=== PATIENT | female | born 1960 | race Caucasian/White ===

== ENCOUNTER 2016-12-03 15:34 | Emergency (ER) | payer OTHER ==
[2016-12-03 15:39] VITALS: BMI 26.5
--- NOTE | 2016-12-03 15:54 | PDOC ---
History of Present Illness <Jerrell Gautam - Last Filed: 12/03/16 15:53> - General History Source: Patient Exam Limitations: No Limitations - History of Present Illness Initial Comments: 12/03/16 16:24 56 y/o F with a PMHx of GERD, HTN, HLD, thyroid disease presents to the ED with chest pressure since yesterday. Patient reports the pain as intermittent and rates it as a 5/10. The pain does not radiate and it is not reproducible. She reports it is exacerbated after eating. Patient gets reflux often, and she usually takes Nexium. Yesterday the pain was slightly different, and describes it as more of a tightness. She took an Kelsea-Plover and she burped and the pain has resovled since then. She denies fever, chills, diaphoresis. She denies SOB, palpitations. She denies NVD. <Ilsa Boogie A - Last Filed: 12/03/16 16:41> - General Chief Complaint: Chest Pain Stated Complaint: CHEST PAIN Time Seen by Provider: 12/03/16 15:53 Past History - Past Medical History Anemia: No Asthma: No Cancer: No Cardiac Disorders: No CVA: No COPD: No CHF: No Dementia: No Diabetes: No GI Disorders: Yes (GERD) Disorders: No HTN: Yes Hypercholesterolemia: Yes Liver Disease: No Seizures: Yes (had one seizure post op removal of brain tumor) Thyroid Disease: Yes Lung CA: No - Surgical History Abdominal Surgery: No Appendectomy: No Cardiac Surgery: No Cholecystectomy: No Lung Surgery: No Neurologic Surgery: Yes (Removal of brain tumor x2 05/2014) Orthopedic Surgery: No - Suicide/Smoking/Psychosocial Hx Smoking Status: No Smoking History: Never smoked Number of Cigarettes Smoked Daily: 0 Cigars Per Day: 0 Information on smoking cessation initiated: No Hx Alcohol Use: No Drug/Substance Use Hx: No Substance Use Type: None Hx Substance Use Treatment: No <Jerrell Gautam - Last Filed: 12/03/16 15:53> <Ilsa Boogie - Last Filed: 12/03/16 16:41> - Past Medical History Allergies/Adverse Reactions: Allergies Allergy/AdvReac Type Severity Reaction Status Date / Time No Known Drug Allergies Allergy Verified 12/03/16 15:36 Home Medications: Ambulatory Orders Levothyroxine [Synthroid -] 25 mcg PO DAILY 10/15/11 Atorvastatin Calcium [Lipitor] 10 mg PO DAILY 08/26/12 Aspirin [Emgha Chewable Aspirin] 81 mg PO DAILY 02/25/14 Losartan Potassium 100 mg PO DAILY 02/25/14 Metoprolol Tartrate [Lopressor -] 50 mg PO HS 02/25/14 Loratadine [Claritin -] 10 mg PO DAILY #7 tablet 01/18/15 Lacosamide [Vimpat -] 200 mg PO BID 05/16/15 Meclizine HCl [Antivert -] 12.5 mg PO BID 05/16/15 Pantoprazole Sodium [Protonix -] 20 mg PO DAILY 05/16/15 Cyclobenzaprine HCl [Flexeril -] 10 mg PO TID PRN #12 tablet 06/28/15 Lacosamide [Vimpat -] 200 mg PO BID 06/28/15 Review of Systems - Review of Systems Able to Perform ROS?: Yes Comments:: 12/03/16 16:24 GENERAL/CONSTITUTIONAL: No fever or chills. No weakness. HEAD, EYES, EARS, NOSE AND THROAT: No change in vision. No ear pain or discharge. No sore throat. CARDIOVASCULAR: (+) chest pressure. No shortness of breath. RESPIRATORY: No cough, wheezing, or hemoptysis. GASTROINTESTINAL: No nausea, vomiting, diarrhea or constipation. GENITOURINARY: No dysuria, frequency, or change in urination. MUSCULOSKELETAL: No joint or muscle swelling or pain. No neck or back pain. SKIN: No rash NEUROLOGIC: No headache, vertigo, loss of consciousness, or change in strength/ sensation. ENDOCRINE: No increased thirst. No abnormal weight change. HEMATOLOGIC/LYMPHATIC: No anemia, easy bleeding, or history of blood clots. ALLERGIC/IMMUNOLOGIC: No hives or skin allergy. <Ilsa Boogie - Last Filed: 12/03/16 16:41> *Physical Exam - Vital Signs Last Vital Signs Temp Pulse Resp BP Pulse Ox 99.4 F 94 H 18 143/84 100 12/03/16 15:36 12/03/16 15:36 12/03/16 15:36 12/03/16 15:36 12/03/16 15:36 <Jerrell Gautam - Last Filed: 12/03/16 15:53> - Vital Signs Last Vital Signs Temp Pulse Resp BP Pulse Ox 99.4 F 94 H 18 143/84 100 12/03/16 15:36 12/03/16 15:36 12/03/16 15:36 12/03/16 15:36 12/03/16 15:36 - Physical Exam Comments: 12/03/16 16:25 GENERAL: Awake, alert, and fully oriented, in no acute distress HEAD: No signs of trauma EYES: PERRLA, EOMI, sclera anicteric, conjunctiva clear ENT: Auricles normal inspection, hearing grossly normal, nares patent, oropharynx clear without exudates. Moist mucosa NECK: Normal ROM, supple, no lymphadenopathy, JVD, or masses LUNGS: Breath sounds equal, clear to auscultation bilaterally. No wheezes, and no crackles HEART: Regular rate and rhythm, normal S1 and S2, no murmurs, rubs or gallops ABDOMEN: Soft, nontender, normoactive bowel sounds. No guarding, no rebound. No masses EXTREMITIES: Normal range of motion, no edema. No clubbing or cyanosis. No cords, erythema, or tenderness NEUROLOGICAL: Cranial nerves II through XII grossly intact. Normal speech, normal gait SKIN: Warm, Dry, normal turgor, no rashes or lesions noted. <Ilsa Boogie - Last Filed: 12/03/16 16:41> *DC/Admit/Observation/Transfer - Attestations Physician Attestion: 12/03/16 15:53 I, Dr. Jerrell Gautam, attest that this document has been prepared under my direction and personally reviewed by me in its entirety. I further attest, that it accurately reflects all work, treatment, procedures and medical decision -making performed by me. <Jerrell Gautam - Last Filed: 12/03/16 15:53> - Attestations Scribe Attestion: 12/03/16 16:25 Documentation prepared by Ilsa Boogie, acting as medical research assistant for Jerrell Gautam DO. <Ilsa Boogie - Last Filed: 12/03/16 16:41>
[2016-12-03 17:01] LABS: BASOPHIL 0.9 % (0-2.0); EOSINOPHIL 6.6 % (0-4.5); MCH 29.1 pg (25.7-33.7); MCHC 34.4 g/dl (32.0-36.0); MEAN CELL VOLUME 84.7 fl (80-96); MEAN PLT VOLUME 7.8 fl (7.5-11.1); NEUTROPHILS 53.7 % (42.8-82.8); PLATELET COUNT 252 K/MM3 (134-434); WHITE BLOOD COUNT 8.2 K/mm3 (4.0-10.0)
[2016-12-03 17:36] LABS: INR 1.39 (0.82-1.09); PROTHROMBIN TIME (PATIENT) 15.4 SEC (9.98-11.88)
[2016-12-03 19:01] LABS: ALBUMIN 3.9 g/dl (3.4-5.0); ANION GAP 10 (8-16); BILIRUBIN,TOTAL 0.3 mg/dL (0.2-1.0); CALCIUM 9.1 mg/dL (8.5-10.1); CO2 28 mmol/L (21-32); CREATININE 0.7 mg/dL (0.55-1.02); GLUCOSE,RANDOM 91 mg/dL (74-106); SGOT/AST 14 U/L (15-37); SGPT/ALT 21 U/L (12-78); TOT PROT 7.3 g/dl (6.4-8.2)
[2016-12-03 19:03] LABS: ALK PHOS 104 U/L (45-117); CPK 202 IU/L (26-192); TROPONIN I < 0.02 ng/ml (0.00-0.05)
[2016-12-03 19:07] LABS: THYROID STIMULATING HORMONE 2.12 uIU/ml (0.358-3.74)
--- NOTE | 2016-12-03 23:11 | PDOC ---
*Physical Exam - Vital Signs Last Vital Signs Temp Pulse Resp BP Pulse Ox 99.4 F 94 H 18 143/84 100 12/03/16 15:36 12/03/16 15:36 12/03/16 15:36 12/03/16 15:36 12/03/16 15:36 <KrisKarla - Last Filed: 12/03/16 23:09> - Vital Signs Last Vital Signs Temp Pulse Resp BP Pulse Ox 98.7 F 86 16 157/83 99 12/03/16 21:18 12/03/16 21:18 12/03/16 21:18 12/03/16 21:18 12/03/16 21:18 <Federica Gandhi - Last Filed: 12/03/16 23:49> ED Treatment Course - LABORATORY CBC & Chemistry Diagram: 12/03/16 16:50 12/03/16 18:14 - ADDITIONAL ORDERS Additional order review: Laboratory Results 12/03/16 12/03/16 12/03/16 18:14 18:14 18:14 PT with INR INR D-Dimer Sodium 142 Potassium 3.7 Chloride 104 Carbon Dioxide 28 Anion Gap 10 BUN 15 D Creatinine 0.7 Creat Clearance w eGFR > 60 Random Glucose 91 Calcium 9.1 Magnesium Total Bilirubin 0.3 D AST 14 L D ALT 21 D Alkaline Phosphatase 104 Creatine Kinase 202 H Creatine Kinase Index 0.4 CK-MB (CK-2) < 1.000 Troponin I < 0.02 B-Natriuretic Peptide 50.41 Total Protein 7.3 Albumin 3.9 Lipase 175 TSH 2.12 12/03/16 12/03/16 12/03/16 18:00 16:50 16:50 PT with INR INR D-Dimer 1036 H Sodium Potassium Chloride Carbon Dioxide Anion Gap BUN Creatinine Creat Clearance w eGFR Random Glucose Calcium Magnesium Total Bilirubin AST ALT Alkaline Phosphatase Creatine Kinase Creatine Kinase Index CK-MB (CK-2) Troponin I B-Natriuretic Peptide Cancelled Total Protein Albumin Lipase Cancelled TSH Cancelled 12/03/16 12/03/16 12/03/16 16:50 16:50 16:50 PT with INR 15.40 H INR 1.39 H D-Dimer Cancelled Sodium Cancelled Potassium Cancelled Chloride Cancelled Carbon Dioxide Cancelled Anion Gap Cancelled BUN Cancelled Creatinine Cancelled Creat Clearance w eGFR Cancelled Random Glucose Cancelled Calcium Cancelled Magnesium Cancelled Total Bilirubin Cancelled AST Cancelled ALT Cancelled Alkaline Phosphatase Cancelled Creatine Kinase Cancelled Creatine Kinase Index CK-MB (CK-2) Troponin I Cancelled B-Natriuretic Peptide Total Protein Cancelled Albumin Cancelled Lipase TSH 12/03/16 16:50 RBC 4.54 MCV 84.7 MCHC 34.4 RDW 14.0 MPV 7.8 Neutrophils % 53.7 Lymphocytes % 28.9 Monocytes % 9.9 Eosinophils % 6.6 H Basophils % 0.9 - RADIOLOGY Radiology Studies Ordered: Category Date Time Status CHEST CTA [CT] Stat CT Scan 12/03/16 20:13 Completed <Karla Ponce - Last Filed: 12/03/16 23:09> - LABORATORY CBC & Chemistry Diagram: 12/03/16 16:50 12/03/16 18:14 - ADDITIONAL ORDERS Additional order review: Laboratory Results 12/03/16 12/03/16 12/03/16 18:14 18:14 18:14 PT with INR INR D-Dimer Sodium 142 Potassium 3.7 Chloride 104 Carbon Dioxide 28 Anion Gap 10 BUN 15 D Creatinine 0.7 Creat Clearance w eGFR > 60 Random Glucose 91 Calcium 9.1 Magnesium Total Bilirubin 0.3 D AST 14 L D ALT 21 D Alkaline Phosphatase 104 Creatine Kinase 202 H Creatine Kinase Index 0.4 CK-MB (CK-2) < 1.000 Troponin I < 0.02 B-Natriuretic Peptide 50.41 Total Protein 7.3 Albumin 3.9 Lipase 175 TSH 2.12 12/03/16 12/03/16 12/03/16 18:00 16:50 16:50 PT with INR INR D-Dimer 1036 H Sodium Potassium Chloride Carbon Dioxide Anion Gap BUN Creatinine Creat Clearance w eGFR Random Glucose Calcium Magnesium Total Bilirubin AST ALT Alkaline Phosphatase Creatine Kinase Creatine Kinase Index CK-MB (CK-2) Troponin I B-Natriuretic Peptide Cancelled Total Protein Albumin Lipase Cancelled TSH Cancelled 12/03/16 12/03/16 12/03/16 16:50 16:50 16:50 PT with INR 15.40 H INR 1.39 H D-Dimer Cancelled Sodium Cancelled Potassium Cancelled Chloride Cancelled Carbon Dioxide Cancelled Anion Gap Cancelled BUN Cancelled Creatinine Cancelled Creat Clearance w eGFR Cancelled Random Glucose Cancelled Calcium Cancelled Magnesium Cancelled Total Bilirubin Cancelled AST Cancelled ALT Cancelled Alkaline Phosphatase Cancelled Creatine Kinase Cancelled Creatine Kinase Index CK-MB (CK-2) Troponin I Cancelled B-Natriuretic Peptide Total Protein Cancelled Albumin Cancelled Lipase TSH 12/03/16 16:50 RBC 4.54 MCV 84.7 MCHC 34.4 RDW 14.0 MPV 7.8 Neutrophils % 53.7 Lymphocytes % 28.9 Monocytes % 9.9 Eosinophils % 6.6 H Basophils % 0.9 - RADIOLOGY Radiograph Interpretation: EXAM#: TYPE/EXAM: RESULT: CT/CHEST CTA Chest CT angiography Clinical information: chest pain, positive d-dimer, evaluate for pulmonary embolism Multiplanar imaging was performed following the intravenous administration of nonionic contrast. No discrete pulmonary embolus is identified. There is no evidence of pneumothorax, infiltrate, or pleural effusion. No discrete lymphadenopathy is seen. There is no definite cardiac enlargement. No pericardial effusion is noted. The visualized osseous structures demonstrate no obvious CT evidence of acute pathology or neoplastic disease. Impression: No CT evidence of pulmonary embolism. Reported By: Bernardo Can MD 12/03/[id number] <Federica Gandhi - Last Filed: 12/03/16 23:49> *DC/Admit/Observation/Transfer - Discharge Dispostion Admit: No <Karla Ponce - Last Filed: 12/03/16 23:09> - Attestations Scribe Attestion: 12/03/16 23:49 Documentation prepared by Federica Gandhi, acting as medical historian for Karla Ponce MD, <Federica Gandhi - Last Filed: 12/03/16 23:49> Diagnosis at time of Disposition: Chest pain in adult - Discharge Dispostion Disposition: HOME Condition at time of disposition: Improved - Referrals Referrals: Ozzie Borges MD [Primary Care Provider] - - Patient Instructions Printed Discharge Instructions: DI for Atypical Chest Pain Additional Instructions: your labs and ekg and ct were negative today. you should follow up with dr. karimi. return for any problems or concerns.
[2016-12-03 23:45] VITALS: BP 157/83; PULSE 86; TEMP 98.7
--- NOTE | 2016-12-04 21:39 | EKG ---
Test Reason : Blood Pressure : / mmHG Vent. Rate : 088 BPM Atrial Rate : 088 BPM P-R Int : 144 ms QRS Dur : 090 ms QT Int : 384 ms P-R-T Axes : 059 012 048 degrees QTc Int : 464 ms NORMAL SINUS RHYTHM SEPTAL INFARCT (CITED ON OR BEFORE 26-AUG-2012) ABNORMAL ECG WHEN COMPARED WITH ECG OF 25-FEB-2014 11:24, NO SIGNIFICANT CHANGE WAS FOUND NO CLINICAL INFORMATION IS AVAILABLE REPEAT EKG IF CLINICALLY INDICATED Confirmed by KATJA SCOTT MD ([id number]) on 12/04/2016 9:38:53 PM Referred By: Confirmed By:KATJA SCOTT MD
== END 2016-12-03 23:33 | disposition home or self-care (01) ==
LOC: JER 15:34
DX: R07.89 Other chest pain (principal); I10 Essential (primary) hypertension; E78.00 Pure hypercholesterolemia, unspecified; K21.9 Gastro-esophageal reflux disease without esophagitis; G40.509 Epileptic seizures related to external causes, not intractable, without status epilepticus
CPT/HCPCS: 36415; 71020-TC; 71275-TC; 80053; 82553; 83690; 83880; 84443; 84484; 85025; 85379; 85610; 93005; 93010; 99283-25

== ENCOUNTER 2017-01-14 07:38 | Emergency (ER) | payer OTHER ==
[2017-01-14 08:03] VITALS: BMI 29.2
[2017-01-14] MEDS ORDERED: MECLIZINE HCL 25 MG TABLET (FP) PO ONE (08:18)
[2017-01-14] MEDS ORDERED: MECLIZINE HCL 25 MG TABLET (FP) ONE (08:22)
[2017-01-14 08:42] LABS: BASOPHIL 0.4 % (0-2.0); EOSINOPHIL 5.3 % (0-4.5); MCH 28.8 pg (25.7-33.7); MCHC 33.9 g/dl (32.0-36.0); MEAN CELL VOLUME 84.9 fl (80-96); MEAN PLT VOLUME 7.9 fl (7.5-11.1); NEUTROPHILS 66.4 % (42.8-82.8); PLATELET COUNT 238 K/MM3 (134-434); RDW 13.1 % (11.6-15.6); WHITE BLOOD COUNT 8.3 K/mm3 (4.0-10.0)
--- NOTE | 2017-01-14 08:42 | PDOC ---
History of Present Illness - General Chief Complaint: Lightheaded Stated Complaint: DIZZINESS,VOMITING, SORE THROAT Time Seen by Provider: 01/14/17 08:04 History Source: Patient Exam Limitations: No Limitations - History of Present Illness Initial Comments: 01/14/17 08:43 This is a 56-year-old woman past medical history of hypertension, hypothyroidism , hyperlipidemia, meningioma status post craniotomy 3 with post-op seizures who presents today with a brief episode of self resolving room spinning dizziness. Patient states when she was feeling dizzy that she became diaphoretic and nauseous and vomited 1. She states the symptoms overall consistent with her usual vertiginous symptoms. Patient did not take her meclizine this morning. She denies any fevers, chills, headaches, blurry vision , ear pain, hearing loss, chest pain, shortness of breath, abdominal pain, urinary difficulties. Timing/Duration: momentarily Severity: mild Associated Symptoms: reports: diaphoresis, nausea/vomiting Past History - Travel Traveled outside of the country in the last 30 days: No Close contact w/someone who was outside of country & ill: No - Past Medical History Allergies/Adverse Reactions: Allergies Allergy/AdvReac Type Severity Reaction Status Date / Time No Known Drug Allergies Allergy Verified 01/14/17 08:05 Home Medications: Ambulatory Orders Levothyroxine [Synthroid -] 25 mcg PO DAILY 10/15/11 Atorvastatin Calcium [Lipitor] 20 mg PO DAILY 08/26/12 Aspirin [Megha Chewable Aspirin] 81 mg PO DAILY 02/25/14 Metoprolol Tartrate [Lopressor -] 50 mg PO HS 02/25/14 Meclizine HCl [Antivert -] 12.5 mg PO TID 05/16/15 Pantoprazole Sodium [Protonix -] 20 mg PO DAILY 05/16/15 Lacosamide [Vimpat -] 200 mg PO BID 06/28/15 Ergocalciferol [Vitamin D2] 50,000 unit PO Q7D@1000 01/14/17 Losartan/Hydrochlorothiazide [Losartan-Hctz 100-25 mg Tab] 1 each PO DAILY 01/14 Oxycodone HCl/Acetaminophen [Percocet 5-325 mg Tablet] 1 tab PO Q4H PRN Anemia: No Asthma: No Cancer: No Cardiac Disorders: No CVA: No COPD: No CHF: No Dementia: No Diabetes: No GI Disorders: Yes (GERD) Disorders: No HTN: Yes Hypercholesterolemia: Yes Liver Disease: No Seizures: Yes (had one seizure post op removal of brain tumor) Thyroid Disease: Yes Lung CA: No - Surgical History Abdominal Surgery: No Appendectomy: No Cardiac Surgery: No Cholecystectomy: No Lung Surgery: No Neurologic Surgery: Yes (Removal of brain tumor x2 05/2014) Orthopedic Surgery: No - Suicide/Smoking/Psychosocial Hx Smoking Status: No Smoking History: Never smoked Have you smoked in the past 12 months: No Number of Cigarettes Smoked Daily: 0 Cigars Per Day: 0 Information on smoking cessation initiated: No Hx Alcohol Use: No Drug/Substance Use Hx: No Substance Use Type: None Hx Substance Use Treatment: No Review of Systems - Review of Systems Able to Perform ROS?: Yes Is the patient limited Swazi proficient: Yes Constitutional: Yes: See HPI HEENTM: No: Symptoms Reported Respiratory: No: Symptoms reported Cardiac (ROS): No: Symptoms Reported ABD/GI: Yes: See HPI : No: Symptoms Reported Musculoskeletal: No: Symptoms Reported Integumentary: No: Symptoms Reported Neurological: Yes: See HPI *Physical Exam - Vital Signs Last Vital Signs Temp Pulse Resp BP Pulse Ox 99.2 F 73 18 126/76 100 01/14/17 07:40 01/14/17 07:40 01/14/17 07:40 01/14/17 07:40 01/14/17 07:40 - Physical Exam General Appearance: Yes: Appropriately Dressed. No: Apparent Distress HEENT: positive: EOMI, ENRRIQUE, Normal ENT Inspection Neck: positive: Trachea midline, Supple Respiratory/Chest: positive: Lungs Clear, Normal Breath Sounds. negative: Chest Tender, Respiratory Distress, Accessory Muscle Use Cardiovascular: positive: Regular Rhythm, Regular Rate, S1, S2. negative: Edema , JVD, Murmur Gastrointestinal/Abdominal: positive: Normal Bowel Sounds, Soft. negative: Tender Musculoskeletal: positive: Normal Inspection. negative: CVA Tenderness Extremity: positive: Normal Capillary Refill, Normal Inspection, Normal Range of Motion Integumentary: positive: Normal Color, Dry, Warm Neurologic: positive: [place] II-XII NML intact, Fully Oriented, Alert, Normal Mood/ Affect, Normal Response, Motor Strength 5/5, Other (appropriate rapid alternating movements. Tadem gait WNL. (-) Rhomberg) Heart Score/ECG Review - History History: Slightly suspicious - Electrocardiogram EKG: Normal - Age Age: 45-65 - Risk Factors Risk Factors Heart Score: Yes Hx Hypercholesterolemia, Yes Hx Hypertension Based on the list above the patient has:: 1-2 risk factors - Troponin Troponin: </= normal limit - Score Heart Score - Total: 2 - ECG Intrepretation Rhythm: Regular Rhythm - [place]: Normal - ST and T Early Repolarization: No - ECG Impressions Normal ECG: Yes ED Treatment Course - LABORATORY CBC & Chemistry Diagram: 01/14/17 08:30 01/14/17 08:30 - RADIOLOGY Radiology Studies Ordered: Category Date Time Status HEAD CT WITHOUT CONTRAST [CT] Stat CT Scan 01/14/17 08:18 Ordered Medical Decision Making - Medical Decision Making 01/14/17 08:42 A/P: This is a 56-year-old woman past medical history of hypertension, hypothyroidism , hyperlipidemia, meningioma status post craniotomy 3 with post-op seizures who presents today with a brief episode of self resolving room spinning dizziness. Patient states when she was feeling dizzy that she became diaphoretic and nauseous and vomited 1. She states the symptoms overall consistent with her usual vertiginous symptoms. Patient did not take her meclizine this morning. She denies any fevers, chills, headaches, blurry vision , ear pain, hearing loss, chest pain, shortness of breath, abdominal pain, urinary difficulties. Patient is alert and oriented 3 in no apparent distress. Tympanic membranes pearly franklin with appropriate light reflex. No retractions or bulging noted. Oropharynx is free of erythema and exudates. Neck is supple no evidence of cervical lymphadenopathy. Chest nontender. Speaking full sentences. Respirations even and unlabored. Lungs clear to auscultation bilaterally. No wheezes or crackles appreciated. Regular rate and rhythm. S1 and S2 present. No murmurs, rub or gallop noted. Abdomen soft nontender nondistended. Normoactive bowel sounds present. Moves all extremities 4 with strength 5 out of 5 in all extremities. Cranial nerves II through XII intact. Pupils equally round reactive to light and accommodation. Patient able to perform rapid alternating movement exercises without any complications. Negative Romberg. Patient able to perform tandem gait without losing balance. Gait steady. Differential diagnosis include peripheral vertigo, Mnire's, labyrinthitis. Cannot rule out ICH given patient's history of meningioma status post craniotomy. Less likely CVA or TIA giving absence of focal findings. I will collect a CBC, CMP, UA, troponin. I will obtain a noncontrast CAT scan of the head. I will give the patient's 12.5 milligrams of meclizine now. When testing is done I will reevaluate the patient. 01/14/17 09:[address] scan of the brain without intravenous contrast. Compared to prior CT scan of the head dated 12/11/2005 and prior MRI of the brain dated 04/26/[address] scan of the orbits dated 04/23/2014 Patient is status post left frontotemporal craniectomy. There is mild volume loss and ventricular dilatation. Probable mild periventricular chronic microvascular ischemic changes. Focal low- attenuation density in the left frontal lobe, anteriorly/ inferiorly compatible with encephalomalacia. Focal encephalomalacia is also seen in the left temporal lobe, anteriorly. Sclerotic expansile and spiculated margin of the bone involves the right sphenoid bone, temporal bone and parietal bone extending posteriorly to the parieto-occipital junction as well as involvement of the high convexity, posteriorly. Findings are compatible with previously suggested bone metastasis. There is absence of the bony landmarks of the left frontal sinus with suggestion of residual soft tissue. Right side of the frontal sinus is now opacified. Left mastoid air cells are well aerated. Mild mucosal thickening in the right maxillary antrum. IMPRESSION: Postop changes/encephalomalacia in the left frontal and temporal lobe, anteriorly. Status post left frontal temporal/parietal craniectomy with loss of the bony landmarks of the frontal sinus. Residual soft tissue cannot be excluded on the left. Right side of the frontal sinus is now opacified. Correlation with contrast-enhanced MRI of the brain would be the study of choice for further evaluation. Interval worsening sclerotic bone changes involving the right sphenoid bone, temporal bone, squamosal portion as well as the right parietal bone and the high convexity, posteriorly suggestive of bone metastasis. Reported By: Kristen Salinas MD 01/14/1790901/14/17 09:25 Given CAT scan, normal EKG, normal labs I will discharge the patient with follow -up with her primary doctor. I have discussed the results and radiologic findings with the patient including likely worsening metastasis to the bone from previous scan. The patient and her son both understand the need for follow- up and verbalized understanding of findings. *DC/Admit/Observation/Transfer Diagnosis at time of Disposition: Vertigo - Discharge Dispostion Disposition: HOME Condition at time of disposition: Stable Admit: No - Patient Instructions Additional Instructions: Take meclizine as previously prescribed. Keep well-hydrated. The CAT scan findings show changes in bone which could be worsening metastatic disease. It is important to follow-up with your primary doctor to follow-up on the CAT scan findings. Return to emergency department for any headaches, worsening dizziness, fevers, blurry vision, loss of feeling or movement to any part of your body, or any other concerns. Thank you very much for choosing us to provide your emergent healthcare needs. - Post Discharge Activity Forms/Work/School Notes: Back to Work
[2017-01-14 09:09] LABS: ALBUMIN 3.7 g/dl (3.4-5.0); ANION GAP 7 (8-16); BILIRUBIN,TOTAL 0.4 mg/dL (0.2-1.0); CO2 28 mmol/L (21-32); CREATININE 0.7 mg/dL (0.55-1.02); GLUCOSE,RANDOM 83 mg/dL (74-106); SGOT/AST 14 U/L (15-37); SGPT/ALT 20 U/L (12-78); TOT PROT 7.4 g/dl (6.4-8.2)
[2017-01-14 09:12] LABS: ALK PHOS 119 U/L (45-117); CPK 115 IU/L (26-192); TROPONIN I < 0.02 ng/ml (0.00-0.05)
--- NOTE | 2017-01-14 10:01 | PDOC ---
*Physical Exam - Vital Signs Last Vital Signs Temp Pulse Resp BP Pulse Ox 99.2 F 73 18 126/76 100 01/14/17 07:40 01/14/17 07:40 01/14/17 07:40 01/14/17 07:40 01/14/17 07:40 - Physical Exam Comments: 01/14/17 09:50 NEURO: Mental status: The patient is alert and oriented x3. Cranial nerves: Cranial nerves II through XII are intact Motor: The upper extremities are 5 over 5 in all muscle groups. The lower extremities are 5 over 5 in all muscle groups. No pronator drift. Sensation: Sensation is intact to light touch throughout. Cerebellar: Heddcy-ytjute-lkid is normal in both upper extremities. Heel-knee- caldera is normal in both lower extremities. Reflexes: 2+ and symmetric in the upper and lower extremities. Gait: Normal. Heel and toe walking are normal. Tandem gait is normal. ED Treatment Course - LABORATORY CBC & Chemistry Diagram: 01/14/17 08:30 01/14/17 08:30 - ADDITIONAL ORDERS Additional order review: Laboratory Results 01/14/17 08:30 Sodium 140 Potassium 3.9 Chloride 105 Carbon Dioxide 28 Anion Gap 7 L BUN 14 Creatinine 0.7 Creat Clearance w eGFR > 60 Random Glucose 83 Calcium 9.0 Total Bilirubin 0.4 D AST 14 L ALT 20 Alkaline Phosphatase 119 H Creatine Kinase 115 Troponin I < 0.02 Total Protein 7.4 Albumin 3.7 01/14/17 08:30 RBC 4.74 MCV 84.9 MCHC 33.9 RDW 13.1 MPV 7.9 Neutrophils % 66.4 D Lymphocytes % 19.2 D Monocytes % 8.7 Eosinophils % 5.3 H Basophils % 0.4 - Medications Given in the ED: ED Medications Discontinued Medications Generic Name Dose Route Start Last Admin Trade Name Freq PRN Reason Stop Dose Admin Meclizine HCl 25 mg 01/14/17 08:18 01/14/17 08:33 Antivert - PO 01/14/17 08:19 12.5 mg ONCE ONE Administration Medical Decision Making - Medical Decision Making 01/14/17 09:50 Patient seen and evaluated with the nurse practitioner. I agree with the overall evaluation, assessment, and management with the following summary of visit: 56-year-old female with history of meningioma status post resection presents with acute on chronic vertigo with an episode of vomiting this morning. No head injury, no other focal neuro deficits, symptoms improved by the time she got here. Neurologically within normal limits and at baseline CT head shows postoperative changes with some interval developments which were reviewed with the patient, and she was provided with the results. Labs wnl. Pt was given meclizine here, feels well and ambulating independently. family at bedside and co-workers from upstairs confirm patient at her baseline. Has follow-up with her primary physicians, understands return criteria. *DC/Admit/Observation/Transfer Diagnosis at time of Disposition: Vertigo - Discharge Dispostion Condition at time of disposition: Improved - Referrals - Patient Instructions Additional Instructions: Take meclizine as previously prescribed. Keep well-hydrated. The CAT scan findings show changes in bone which could be worsening metastatic disease. It is important to follow-up with your primary doctor to follow-up on the CAT scan findings. Return to emergency department for any headaches, worsening dizziness, fevers, blurry vision, loss of feeling or movement to any part of your body, or any other concerns. Thank you very much for choosing us to provide your emergent healthcare needs. - Post Discharge Activity Forms/Work/School Notes: Back to Work
[2017-01-14 10:35] VITALS: BP 115/62; PULSE 70; TEMP 99.3
--- NOTE | 2017-01-14 14:43 | EKG ---
Test Reason : Blood Pressure : / mmHG Vent. Rate : 076 BPM Atrial Rate : 076 BPM P-R Int : 148 ms QRS Dur : 092 ms QT Int : 402 ms P-R-T Axes : 057 023 047 degrees QTc Int : 452 ms NORMAL SINUS RHYTHM WHEN COMPARED WITH ECG OF 03-DEC-2016 15:46, NO SIGNIFICANT CHANGE WAS FOUND Confirmed by PALOMO BOND MD ([id number]) on 01/14/2017 2:43:10 PM Referred By: Confirmed By:PALOMO BOND MD
== END 2017-01-14 10:40 | disposition home or self-care (01) ==
LOC: JER 07:38
DX: H81.399 Other peripheral vertigo, unspecified ear (principal); I10 Essential (primary) hypertension; E03.9 Hypothyroidism, unspecified
CPT/HCPCS: 36415; 70450-TC; 80053; 82550; 84484; 85025; 93005; 93010; 99283-25

== ENCOUNTER 2017-03-19 15:41 | Emergency (ER) | payer OTHER ==
[2017-03-19 15:58] VITALS: BP 121/84; PULSE 102; TEMP 99.3; BMI 25.6
--- NOTE | 2017-03-19 15:58 | PDOC ---
Rapid Medical Evaluation Chief Complaint: Cold Symptoms Time Seen by Provider: 03/19/17 15:55 Medical Evaluation: Allergies Allergy/AdvReac Type Severity Reaction Status Date / Time No Known Drug Allergies Allergy Verified 03/19/17 15:54 03/19/17 15:55 I have performed a brief in-person evaluation of this patient. The patient presents with a chief complaint of: Sore throat w/ cough and body aches x 2-3 days. H/o HTN Pertinent physical exam findings:Stable w/ unremarkable exam I have ordered the following:nothing The patient will proceed to the ED for further evaluation.
--- NOTE | 2017-03-19 17:00 | PDOC ---
History of Present Illness - General Chief Complaint: Cold Symptoms Stated Complaint: EYE PROBLEM, SORE THROAT Time Seen by Provider: 03/19/17 15:55 History Source: Patient Exam Limitations: No Limitations - History of Present Illness Initial Comments: 03/19/17 16:58 Patient is a 56-year-old female with history of seizures, high blood pressure, high cholesterol, GERD, hypothyroidism and asthma reports that she had removal of tumor to left parietal area. Patient presents with pain to right ear, sore throat, hoarse voice and moist productive cough. Patient denies any chest pain or shortness of breath, no hemoptysis. Allergies: No known allergies Medications: [See medication list] Family History: Non-contributory Social History: Denies smoking, alcohol use, or IVDU Review of Systems GENERAL/CONSTITUTIONAL: [No fever or chills. No weakness. No weight change.] HEAD, EYES, EARS, NOSE AND THROAT: [No change in vision. Right-sided throat and right ear pain, no dysphagia] CARDIOVASCULAR: [No chest pain or shortness of breath.] RESPIRATORY: [No cough, wheezing, or hemoptysis.] GASTROINTESTINAL: [No nausea, vomiting, diarrhea or constipation. No rectal bleeding.] GENITOURINARY: [No dysuria, frequency, or change in urination.] MUSCULOSKELETAL: [No joint or muscle swelling or pain. No neck or back pain.] SKIN AND BREASTS: [No rash or easy bruising.] NEUROLOGIC: [No headache, vertigo, loss of consciousness, or loss of sensation.] PSYCHIATRIC: [No depression or anxiety.] ENDOCRINE: [No increased thirst. No abnormal weight change.] HEMATOLOGIC/LYMPHATIC: [No anemia, easy bleeding, or history of blood clots.] ALLERGIC/IMMUNOLOGIC: [No hives or skin allergy. No latex allergy.] Physical Exam: GENERAL: [The patient is awake, alert, and fully oriented, in no acute distress. ] HEAD: [Normal with no signs of trauma.] EYES: [Pupils equal, round and reactive to light, extraocular movements intact, sclera anicteric, conjunctiva clear.] ENT: [Right TM is erythematous and bulging, nares patent, oropharynx clear without exudates. Moist mucous membranes. No uvula deviation] NECK: [Normal range of motion, supple without lymphadenopathy, JVD, or masses.] LUNGS: [Breath sounds equal, clear to auscultation bilaterally. No wheezes, and no crackles.] HEART: [Regular rate and rhythm, normal S1 and S2 without murmur, rub or gallop. ] ABDOMEN: [Soft, nontender, normoactive bowel sounds. No guarding, no rebound. No masses. No bruising or abrasions] RECTAL : [Guaiac negative, normal rectal tone.] MUSCULOSKELETAL: [Normal range of motion, no edema. No clubbing or cyanosis. No cords, erythema, or tenderness. No CVA Tenderness with fist.] NEUROLOGICAL: [Cranial nerves II through XII grossly intact. Normal speech, normal gait.] PSYCH: [Normal mood, normal affect.] SKIN: [Warm, Dry, normal turgor, no rashes or lesions noted.] Past History - Past Medical History Allergies/Adverse Reactions: Allergies Allergy/AdvReac Type Severity Reaction Status Date / Time No Known Drug Allergies Allergy Verified 03/19/17 15:54 Home Medications: Ambulatory Orders Levothyroxine [Synthroid -] 25 mcg PO DAILY 10/15/11 Atorvastatin Calcium [Lipitor] 20 mg PO DAILY 08/26/12 Aspirin [Megha Chewable Aspirin] 81 mg PO DAILY 02/25/14 Metoprolol Tartrate [Lopressor -] 50 mg PO HS 02/25/14 Meclizine HCl [Antivert -] 12.5 mg PO TID 05/16/15 Pantoprazole Sodium [Protonix -] 20 mg PO DAILY 05/16/15 Lacosamide [Vimpat -] 200 mg PO BID 06/28/15 Ergocalciferol [Vitamin D2] 50,000 unit PO Q7D@1000 01/14/17 Losartan/Hydrochlorothiazide [Losartan-Hctz 100-25 mg Tab] 1 each PO DAILY 01/14 Oxycodone HCl/Acetaminophen [Percocet 5-325 mg Tablet] 1 tab PO Q4H PRN Amoxicillin - [Amoxicillin 875mg Tablet -] 875 mg PO BID #14 tab 03/19/17 Anemia: No Asthma: No Cancer: No Cardiac Disorders: No CVA: No COPD: No CHF: No Dementia: No Diabetes: No GI Disorders: Yes (GERD) Disorders: No HTN: Yes Hypercholesterolemia: Yes Liver Disease: No Seizures: Yes (had one seizure post op removal of brain tumor) Thyroid Disease: Yes Lung CA: No - Surgical History Abdominal Surgery: No Appendectomy: No Cardiac Surgery: No Cholecystectomy: No Lung Surgery: No Neurologic Surgery: Yes (Removal of brain tumor x2 05/2014) Orthopedic Surgery: No - Suicide/Smoking/Psychosocial Hx Smoking Status: No Smoking History: Never smoked Have you smoked in the past 12 months: No Number of Cigarettes Smoked Daily: 0 Cigars Per Day: 0 Information on smoking cessation initiated: No Hx Alcohol Use: No Drug/Substance Use Hx: No Substance Use Type: None Hx Substance Use Treatment: No *Physical Exam - Vital Signs Last Vital Signs Temp Pulse Resp BP Pulse Ox 99.3 F 102 H 18 121/84 100 03/19/17 15:54 03/19/17 15:54 03/19/17 15:54 03/19/17 15:54 03/19/17 15:54 Medical Decision Making - Medical Decision Making 03/19/17 16:59 A/P: Patient with fever, nonproductive cough, right ear pain and right-sided throat pain patient with an acute otitis media I will discharge patient home on amoxicillin, follow-up with ENT I discussed the physical exam findings, ancillary test results and final diagnoses with the patient. I answered all of the patient's questions. The patient was satisfied with the care received and felt comfortable with the discharge plan and treatment plan. The patient will call to arrange follow-up and will return to the Emergency Department with any new, persistent or worsening symptoms. *DC/Admit/Observation/Transfer Diagnosis at time of Disposition: Otitis media, right Qualifiers: Otitis media type: unspecified Qualified Code(s): H66.91 - Otitis media, unspecified, right ear - Discharge Dispostion Disposition: HOME Condition at time of disposition: Stable Admit: No - Prescriptions Prescriptions: Amoxicillin - [Amoxicillin 875mg Tablet -] 875 mg PO BID #14 tab - Referrals Referrals: Ozzie Borges MD [Primary Care Provider] - - Patient Instructions Printed Discharge Instructions: Middle Ear Infection Additional Instructions: Increase fluids to prevent dehydration Antibiotics as ordered until completed Motrin for fever greater than 101.0 Please followup with primary care DrYoli in 3 days if symptoms persist Return to emergency department any increased cough, fever, inability to drink or other concerns - Post Discharge Activity Forms/Work/School Notes: Back to Work
== END 2017-03-19 17:13 | disposition home or self-care (01) ==
LOC: JERFT 15:41
DX: H66.91 Otitis media, unspecified, right ear (principal); I10 Essential (primary) hypertension; E78.00 Pure hypercholesterolemia, unspecified; E03.9 Hypothyroidism, unspecified; K21.9 Gastro-esophageal reflux disease without esophagitis
CPT/HCPCS: 99281-25

== ENCOUNTER 2017-05-14 09:21 | Emergency (ER) | payer OTHER ==
[2017-05-14 09:29] VITALS: BP 116/80; PULSE 78; TEMP 98; BMI 24.7
--- NOTE | 2017-05-14 09:37 | PDOC ---
Attending Attestation - Resident Resident Name: Karla Samuel - ED Attending Attestation I have performed the following: I have examined & evaluated the patient, The case was reviewed & discussed with the resident, I agree w/resident's findings & plan, Exceptions are as noted - HPI HPI: 05/14/17 11:06 56y F hx of htn, hypothyroidism, sz, presents with chest pain on the left chest - onset initially yesterday when she was going to her eye doctor, squeezing in nature, lasting for seconds and waxing and waning, lasting approx 1-2 minutes beore resolving. Pt denies associated sob, diaphoresis, n/v, numbness/tingling/ weakness, palpitations. 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 Pt states she came today because she was at work and she experienced a very brief episode (<1 min) of numbness on her L cheek. There was no associated cp, focal waekness, vision changes, headache, dizziness, n/v, back pain, neck pain, or other complaints. It has since resolved and she is currently asymptomatic. No recent feve/r/chills, cough, diarrhea, melena, bpr, dysuria, urgency/ frequency, leg swelling, hemoptysis. ROS: All other ssytems reviewed and are negative except noted in HPI PE: GENERAL: The patient is awake, alert, and fully oriented, Nontoxic - in no acute distress. HEAD: Normocephalic, atraumatic. EYES: extraocular movements intact, sclera anicteric, conjunctiva clear. ENT: Normal voice, Moist mucous membranes. NECK: Normal range of motion, supple LUNGS: Breath sounds equal, clear to auscultation bilaterally. No wheezes, no rhonchi, no rales. HEART: Regular rate and rhythm, normal S1 and S2 without murmur, rub or gallop. ABDOMEN: Soft, nontender, normoactive bowel sounds. No guarding, no rebound. . No CVA tenderness EXTREMITIES: Normal range of motion, no edema. No clubbing or cyanosis. No cords, erythema, or tenderness. NEUROLOGICAL: No facial assymetry, Normal speech, moving all 4 extremities spontaneously and symettrically. PSYCH: Normal mood, normal affect. SKIN: Warm, Dry, normal turgor, plan - will screen for ACS with trop x 1, ekg cp is atypical of acs, possible muscle spasm/msk cause her numnbess is also atypical of tia/cva due to limited symtoms will refer her to neuro pt takes ASA will ck labs, ekg, cxr pt on cardiact monitor - Physicial Exam PE: 05/17/17 02:49 see above - Medical Decision Making pt feeling improved labs wnl prior to dc pt dc to fu with pmd w return precautions 05/17/17 02:49 see above
--- NOTE | 2017-05-14 09:55 | PDOC ---
History of Present Illness - General Chief Complaint: CVA/TIA Stated Complaint: EMPLOYEE, CHEST PAIN, LT SIDE NUMBNESS Time Seen by Provider: 05/14/17 09:29 History Source: Patient - History of Present Illness Initial Comments: 05/14/17 10:31 56 y.o. female with a PMH of HTN, Hypothyroidism, Asthma, Meningioma (s/p crainotomy w/1 post operative seizure on Lacosamide) who presents to the ED c/o resolved 10-20 minute episode of chest tightness yesterday as well as resolved L sided facial numbness today. Patient states she was a passenger in the car yesterday when she felt substernal, non-radiating, intermittent chest tightness that resolved within 20 minutes. Patient denies any associated lightheadedness, palpitations, nausea, shortness of breath. Patient notes she experienced this pain previously and was evaluated by a ordnance officer (Dr. Villalta) at which time she was told everything was normal. Family history notable for maternal HTN as well as possible maternal [place]. Patient also notes this morning while preparing breakfast she noted a 2-3 minute sensation of L sided facial numbness localized to her lower left cheek/ jaw. Patient denies any associated weakness, slurred speech, visual change, mental status changes. Patient denies current chest pain, shortness of breath, abdominal pain, fevers/ chills, nausea/vomiting, diarrhea/constipation as well as recent travel, sick contacts. NKDA Surgery: unspecified cranial tumor removal (2014) Social: denies nicotine, denies alcohol, denies recreational drugs PMD: Dr. Borges Past History - Past Medical History Allergies/Adverse Reactions: Allergies Allergy/AdvReac Type Severity Reaction Status Date / Time No Known Drug Allergies Allergy Verified 05/14/17 09:23 Home Medications: Ambulatory Orders Levothyroxine [Synthroid -] 25 mcg PO DAILY 10/15/11 Atorvastatin Calcium [Lipitor] 20 mg PO HS 08/26/12 Aspirin [Megha Chewable Aspirin] 81 mg PO HS 02/25/14 Metoprolol Tartrate [Lopressor -] 50 mg PO HS 02/25/14 Meclizine HCl [Antivert -] 12.5 mg PO BID PRN 05/16/15 Pantoprazole Sodium [Protonix -] 20 mg PO DAILY PRN 05/16/15 Lacosamide [Vimpat -] 200 mg PO BID 06/28/15 Ergocalciferol [Vitamin D2] 50,000 unit PO Q7D 01/14/17 Losartan/Hydrochlorothiazide [Losartan-Hctz 100-25 mg Tab] 1 each PO DAILY 01/14 Anemia: No Asthma: No Cancer: No Cardiac Disorders: No CVA: No COPD: No CHF: No DVT: No Dementia: No Diabetes: No GI Disorders: Yes (GERD) Disorders: No HTN: Yes Hypercholesterolemia: Yes Liver Disease: No Seizures: Yes (had one seizure post op removal of brain tumor) Thyroid Disease: Yes Lung CA: No - Surgical History Abdominal Surgery: No Appendectomy: No Cardiac Surgery: No Cholecystectomy: No Lung Surgery: No Neurologic Surgery: Yes (Removal of brain tumor x2 05/2014) Orthopedic Surgery: No - Suicide/Smoking/Psychosocial Hx Smoking Status: No Smoking History: Never smoked Have you smoked in the past 12 months: No Number of Cigarettes Smoked Daily: 0 Cigars Per Day: 0 Information on smoking cessation initiated: No Hx Alcohol Use: No Drug/Substance Use Hx: No Substance Use Type: None Hx Substance Use Treatment: No Review of Systems - Review of Systems Constitutional: No: Chills, Fever HEENTM: No: Recent change in vision Respiratory: No: Cough, Shortness of Breath, Stridor, Wheezing Cardiac (ROS): Yes: Chest Tightness (resolved). No: Lightheadedness, Palpitations, Syncope ABD/GI: No: Constipated, Diarrhea, Nausea, Rectal Bleeding, Vomiting : No: Burning, Dysuria *Physical Exam - Vital Signs Last Vital Signs Temp Pulse Resp BP Pulse Ox 98.0 F 78 18 116/80 100 05/14/17 09:24 05/14/17 09:24 05/14/17 09:24 05/14/17 09:24 05/14/17 09:24 - Physical Exam Comments: 05/14/17 10:56 GENERAL: The patient is awake, alert, and fully oriented, and non-toxic appearing HEAD: normocephalic, atraumatic. EYES: extraocular movements intact, sclera anicteric, conjunctiva clear. ENT: normal voice, moist mucous membranes. NECK: normal range of motion, supple LUNGS: breath sounds equal, clear to auscultation bilaterally.~no wheezes, no rhonchi, no rales. HEART: RRR, normal S1 and S2 without murmur, rub or gallop. ABDOMEN: soft, nontender, normoactive bowel sounds. EXTREMITIES: normal range of motion, no edema. no clubbing or cyanosis. NEUROLOGICAL: no facial asymmetry, normal speech PSYCH: normal mood, normal affect. SKIN: warm, dry, normal turgor ED Treatment Course - LABORATORY CBC & Chemistry Diagram: 05/14/17 10:42 05/14/17 10:42 Medical Decision Making - Medical Decision Making 05/14/17 10:58 56 y.o. female presents with resolved chest tightness and likely unrelated resolved facial numbness. Given patient's clinical history of 2-3 minutes of resolved facial numbness as well as no HTN during entire course of evaluation as well normal neurological exam, low clinical suspicion for TIA. Will obtain Troponin x1 as chest pain > 12 hours previous as well as CXR. 05/14/17 11:15 CXR shows no interval change since prior evaluation. Patient resting comfortably with no repeat episodes of chest pain or facial numbness. EKG shows NSR, HR 71, non-ischemic and c/w prior ECG of 12/2016. 05/14/17 12:56 Troponin (-), patient ambulatory and tolerating PO intake. At this time patient has been observed for 3 hours with no repeat of SiSx will discharge patient home with return precautions and instruction to f/u with PMD as well as cardiology who evaluated patient on prior occassion with no reported concerning findings. Patient ambulatory, improved. I discussed the physical exam findings, ancillary test results and final diagnoses with the patient. I answered all of the patient's questions. The patient was satisfied with the care received and felt comfortable with the discharge plan and treatment plan. The patient will return to the Emergency Department with any new, persistent or worsening symptoms. *DC/Admit/Observation/Transfer Diagnosis at time of Disposition: Chest pain - Discharge Dispostion Disposition: HOME Condition at time of disposition: Good Admit: No - Referrals Referrals: Ozzie Borges MD [Primary Care Provider] - Adrian Villalta MD [Staff Physician] - Tal Miranda MD [Staff Physician] - - Patient Instructions Additional Instructions: You were evaluated today for chest pain. All of your labs and chest x-ray showed no concerning findings. Please make a follow-up appointment with your primary care doctor in the next 3-5 days. Please also make a follow-up appointment with Dr. Villalta, cardiology, who has evaluated you on prior occassion. You may also make a follow-up appointment with Dr. Miranda, neurology, for evaluation of your facial numbness. - Post Discharge Activity
[2017-05-14 11:02] LABS: BASO % 0.9 % (0-2.0); EOS % 4.5 % (0-4.5); HEMATOCRIT 37.8 % (32.4-45.2); HEMOGLOBIN 12.4 GM/dL (10.7-15.3); LYMPH % 23.7 % (8-40); MCH 27.5 pg (25.7-33.7); MCHC 32.8 g/dl (32.0-36.0); MEAN CELL VOLUME 83.9 fl (80-96); MEAN PLT VOLUME 8.4 fl (7.5-11.1); MONO % 7.7 % (3.8-10.2); NEUT % 63.2 % (42.8-82.8); PLATELET COUNT 208 K/MM3 (134-434); RBC 4.51 M/mm3 (3.60-5.2); RDW 13.9 % (11.6-15.6); WHITE BLOOD COUNT 6.5 K/mm3 (4.0-10.0)
[2017-05-14 11:10] LABS: INR 1.27 (0.82-1.09); PROTHROMBIN TIME (PATIENT) 14.3 SEC (9.98-11.88)
[2017-05-14 11:21] LABS: ALBUMIN 3.8 g/dl (3.4-5.0); ANION GAP 8 (8-16); BILIRUBIN,TOTAL 0.5 mg/dL (0.2-1.0); BLOOD UREA NITROGEN 13 mg/dL (7-18); CALCIUM 8.3 mg/dL (8.5-10.1); CHLORIDE 103 mmol/L (98-107); CO2 29 mmol/L (21-32); CREATININE 0.6 mg/dL (0.55-1.02); GLUCOSE,RANDOM 78 mg/dL (74-106); POTASSIUM 3.5 mmol/L (3.5-5.1); SGOT/AST 17 U/L (15-37); SGPT/ALT 22 U/L (12-78); SODIUM 140 mmol/L (136-145); TOT PROT 7.2 g/dl (6.4-8.2)
[2017-05-14 11:29] LABS: ALK PHOS 143 U/L (45-117)
--- NOTE | 2017-05-14 15:08 | EKG ---
Test Reason : Blood Pressure : / mmHG Vent. Rate : 071 BPM Atrial Rate : 071 BPM P-R Int : 154 ms QRS Dur : 094 ms QT Int : 420 ms P-R-T Axes : 043 016 041 degrees QTc Int : 456 ms NORMAL SINUS RHYTHM NORMAL ECG WHEN COMPARED WITH ECG OF 14-JAN-2017 07:46, NO SIGNIFICANT CHANGE WAS FOUND Confirmed by MD Brown Daniel ([id number]) on 05/14/2017 3:07:32 PM Referred By: Confirmed By:Roland Brown MD
== END 2017-05-14 13:04 | disposition home or self-care (01) ==
LOC: JER 09:21
DX: R07.89 Other chest pain (principal); I10 Essential (primary) hypertension; E03.9 Hypothyroidism, unspecified; J45.909 Unspecified asthma, uncomplicated; K21.9 Gastro-esophageal reflux disease without esophagitis; E78.00 Pure hypercholesterolemia, unspecified; Z86.69 Personal history of other diseases of the nervous system and sense organs
CPT/HCPCS: 36415; 71046-TC-FY; 80053; 82550; 82553; 84443; 84484; 85025; 85610; 85730; 93005; 93010; 99285-25

== ENCOUNTER 2017-07-12 14:01 | Emergency (ER) | payer OTHER ==
[2017-07-12 14:13] VITALS: BMI 24.7
--- NOTE | 2017-07-12 14:22 | PDOC ---
History of Present Illness - General Chief Complaint: Headache Stated Complaint: Headache History Source: Patient, Family Exam Limitations: No Limitations - History of Present Illness Initial Comments: 07/12/17 14:46 Pt is a 56 yo F with PMHx of HTN, asthma, meningioma (s/p x3 craniotomies), seizure, hypercholesterolemia, hypothyroidism and vertigo presenting today with one week hx of worsening headache. Pt describes a R sided headache 8/10 non radiating, no aura, no associated nasal congestion, fever, neck pain or stiffness initially 8/10 yesterday, which has gradually improved with tylenol ( last dose 11am) to about 1/10. Patient has nausea, but no vomiting. There is associated dizziness, worse with movement. No hearing loss or imbalance, no poor sleep or day time somnolence, no seizures, bladder or bowel incontinence, no facial droop or weakness of any part of the body. No chest pain, palpitations , dysuria or hematuria. At the onset of her symptoms, she saw her PCP- Dr Ozzie Borges and had labs done that were normal. She was given- Vimovo ( naproxen/ esomeprazole), she took Saturday and Saturday, which made her more dizzy and nauseous. She had L and frontal craniotomy x2 (2014) and one 2016 in [facility] and completed radiation therapy 2 months ago for the same tumor. She is scheduled for a vist to her neurologist/neurosurgeon on July 22 and for a repeat MRI in August but came in today because of persistence of the headache. Timing/Duration: changing over time Severity: mild Past History - Past Medical History Allergies/Adverse Reactions: Allergies Allergy/AdvReac Type Severity Reaction Status Date / Time No Known Drug Allergies Allergy Verified 07/12/17 14:10 Home Medications: Ambulatory Orders Aspirin [ASA -] 81 mg PO DAILY 07/12/17 Atorvastatin Ca [Lipitor] 20 mg PO HS 07/12/17 Cholecalciferol (Vitamin D3) [Vitamin D3 -] 50,000 unit PO WEEKLY 07/12/17 Famotidine [Pepcid -] 40 mg PO DAILY 07/12/17 Levothyroxine [Synthroid -] 25 mcg PO DAILY 07/12/17 Losartan/Hydrochlorothiazide [Hyzaar 100-25 Tablet] 1 each PO DAILY 07/12/17 Meclizine HCl 12.5 mg PO DAILY PRN 07/12/17 Megestrol Acetate [Megace Es] 625 mg PO DAILY 07/12/17 Metoprolol Succinate [Toprol Xl -] 50 mg PO DAILY 07/12/17 Vitamin B Complex 1 each PO DAILY 07/12/17 Anemia: No Asthma: No Cancer: No Cardiac Disorders: No CVA: No COPD: No CHF: No DVT: No Dementia: No Diabetes: No GI Disorders: Yes (GERD) Disorders: No HTN: Yes Hypercholesterolemia: Yes Liver Disease: No Seizures: Yes (had one seizure post op removal of brain tumor) Thyroid Disease: Yes Lung CA: No - Surgical History Abdominal Surgery: No Appendectomy: No Cardiac Surgery: No Cholecystectomy: No Lung Surgery: No Neurologic Surgery: Yes (Removal of brain tumor x2 05/2014) Orthopedic Surgery: No - Suicide/Smoking/Psychosocial Hx Smoking Status: No Smoking History: Never smoked Have you smoked in the past 12 months: No Number of Cigarettes Smoked Daily: 0 Cigars Per Day: 0 Information on smoking cessation initiated: No Hx Alcohol Use: No Drug/Substance Use Hx: No Substance Use Type: None Hx Substance Use Treatment: No Review of Systems - Review of Systems Able to Perform ROS?: Yes Is the patient limited [place] proficient: Yes Constitutional: Yes: Weight Stable. No: Chills, Diaphoresis, Fever HEENTM: No: Blurred Vision, Nose Congestion, Throat Pain Respiratory: No: Cough, Orthopnea, Shortness of Breath, SOB at Rest, Wheezing, Productive cough Cardiac (ROS): No: Chest Pain, Edema, Syncope, Chest Tightness ABD/GI: Yes: Nausea. No: Abdominal Distended, Poor Appetite, Vomiting : No: Burning, Dysuria, Discharge, Flank Pain, Hematuria Musculoskeletal: No: Muscle Weakness Neurological: Yes: Headache, Dizziness. No: Numbness, Paresthesia, Seizure, Tingling, Unsteady Gait *Physical Exam - Vital Signs Last Vital Signs Temp Pulse Resp BP Pulse Ox 98.0 F 85 18 117/81 100 07/12/17 14:11 07/12/17 14:11 07/12/17 14:11 07/12/17 14:11 07/12/17 14:11 - Physical Exam General Appearance: Yes: Appropriately Dressed. No: Apparent Distress HEENT: positive: EOMI, ENRRIQUE, Symmetrical, Pharynx Normal. negative: Pale Conjunctivae, Pharyngeal Erythema, Tonsillar Exudate, Rhinorrhea, Sinus Tenderness Neck: positive: Supple. negative: Tender Respiratory/Chest: positive: Lungs Clear, Normal Breath Sounds. negative: Respiratory Distress, Accessory Muscle Use Cardiovascular: positive: Regular Rhythm, Regular Rate, S1, S2 Gastrointestinal/Abdominal: positive: Normal Bowel Sounds, Soft. negative: Tender Musculoskeletal: negative: CVA Tenderness Extremity: positive: Normal Inspection Integumentary: positive: Dry, Warm Neurologic: positive: laboratory mechanical technician II-XII NML intact, Fully Oriented, Alert, Normal Mood/ Affect, Motor Strength 5/5. negative: EOM Palsy, Facial Droop, Confused, Disoriented ED Treatment Course - LABORATORY CBC & Chemistry Diagram: 07/12/17 15:10 07/12/17 15:10 Medical Decision Making - Medical Decision Making 07/12/17 15:07 CBC, CMP, CT scan without contrast- to R/O bleed Will rehydrate with 500mls of normal saline, Will treat for migraine with benadryl and reglan 07/12/17 15:08 Will observe for resolution of symptoms and discharge to follow up as an outpatient with her neurologist in [facility] 07/12/17 17:26 CT head w/o contrast shows no evidence of acute intracranial pathology Interval development of small amount of L mastoid air cell fluid accumulation Plan is to discharge her home to follow up with her coat presser as soon as possible *DC/Admit/Observation/Transfer Diagnosis at time of Disposition: Headache - Discharge Dispostion Disposition: HOME Condition at time of disposition: Fair Admit: No - Referrals Referrals: Parth Thomas MD [Primary Care Provider] - - Patient Instructions Printed Discharge Instructions: DI for Headache Additional Instructions: You were seen here for headache that was worse on the R side We did a CT scan of your head and did not see any evidence of bleeding or new swelling We are discharging you home to follow up with your neurologist/ neurosurgeon who are following you for the meningioma and previous brain surgeries If you feel you are getting worse, with chest pain, difficulty breathing please go to the nearest emergency room - Post Discharge Activity - Attestations Physician Attestion: 07/12/17 17:32 Sheila Bhatia MD
--- NOTE | 2017-07-12 15:01 | PDOC ---
Attending Attestation - HPI HPI: 07/12/17 15:50 The patient is a 56 year old female with history of hypertension, hyperlipidemia , meningioma s/p craniotomy, who presents to the ED complaining of 1 week of R sided headache. Headache is nonradiating, nonmigrating, ranked 8/10. She states she saw her PCP approximately 1 week ago for the same complain. She was started on Naproxen-Esomeprazole with worsening of her symptoms. No fever, chills, or neck pain. No blurred vision, numbness, or tingling. - Physicial Exam PE: 07/12/17 15:54 Vitals: Triage vital signs reviewed General Appearance: No acute distress, well nourished, well developed Head: Atraumatic Eyes: Pupils equal reactive round, extraocular movement intact Neck: Supple; No nuchal rigidity Chest Wall: Nontender Cardiac: Regular rate and rhythm, no murmurs, no rubs, no gallops Lungs: Clear to auscultation bilateral, good air movement bilaterally Abdomen: Soft, nondistended, normal bowel sounds, nontender to palpation Extremities: Full range of motion to all extremities, no cyanosis, clubbing, or edema Skin: Warm and dry, no rashes or lesions, no rash, no petechiae Neuro: AOX3; Cranial Nerves 2-12 grossly intact, Strength intact to all extremities, Sensation intact to all extremities, gait normal Psych: Normal mood, normal affect - Medical Decision Making 07/12/17 15:55 Documentation prepared by Daina Vale, acting as medical insurance verifier for Kang Monte MD. <Daina Vale - Last Filed: 07/12/17 15:50> - Resident Resident Name: Karla Samuel - ED Attending Attestation I have performed the following: I have examined & evaluated the patient, The case was reviewed & discussed with the resident, I agree w/resident's findings & plan, Exceptions are as noted - Medical Decision Making 07/12/17 15:42 56 years old with complicated medical history including multiple resections for meningioma status post craniotomy seizures presents to the ED with 1 week history of nighttime headaches. Patient has follow-up with her neurosurgeon for MRI on July 22 and slightly over 1 week she was started on a new medication this past week which seemed to has made her more nauseous We'll obtain a CT to rule out acute pathology treat mild headache and nausea with Reglan and Benadryl if normal patient can be continue workup as outpatient Re Evaluation: No acute findings on patient's head CT headache has improved with Reglan and Benadryl she has follow-up for MRI within approximately 1 week Findings, the need for follow-up and strict return instructions discussed with patient. <Kang Monte - Last Filed: 07/12/17 18:34>
[2017-07-12] MEDS ORDERED: SODIUM CHLORIDE 0.9% 500 ML INFUS.BAG IV ONE (15:02)
[2017-07-12] MEDS ORDERED: METOCLOPRAMIDE HCL INJECTION 10 MG/2 ML VIAL IVPUSH ONE (15:03)
[2017-07-12] MEDS ORDERED: METOCLOPRAMIDE HCL INJECTION 10 MG/2 ML VIAL ONE (15:10)
[2017-07-12 15:30] LABS: BASO % 0.7 % (0-2.0); EOS % 3.2 % (0-4.5); HEMATOCRIT 39.6 % (32.4-45.2); HEMOGLOBIN 13.7 GM/dL (10.7-15.3); LYMPH % 22.8 % (8-40); MCH 29.1 pg (25.7-33.7); MCHC 34.6 g/dl (32.0-36.0); MEAN CELL VOLUME 84.2 fl (80-96); MEAN PLT VOLUME 7.9 fl (7.5-11.1); MONO % 10.9 % (3.8-10.2); NEUT % 62.4 % (42.8-82.8); PLATELET COUNT 225 K/MM3 (134-434); RDW 14.2 % (11.6-15.6)
[2017-07-12 15:48] LABS: ALBUMIN 3.8 g/dl (3.4-5.0); ALK PHOS 119 U/L (45-117); ANION GAP 4 (8-16); BILIRUBIN,TOTAL 0.3 mg/dL (0.2-1.0); BLOOD UREA NITROGEN 15 mg/dL (7-18); CALCIUM 8.5 mg/dL (8.5-10.1); CHLORIDE 105 mmol/L (98-107); CO2 30 mmol/L (21-32); CREATININE 0.7 mg/dL (0.55-1.02); GLUCOSE,RANDOM 86 mg/dL (74-106); POTASSIUM 3.7 mmol/L (3.5-5.1); SGOT/AST 13 U/L (15-37); SGPT/ALT 14 U/L (12-78); SODIUM 139 mmol/L (136-145); TOT PROT 7.3 g/dl (6.4-8.2)
[2017-07-12] MEDS ORDERED: ACETAMINOPHEN 325 MG TABLET (FP) PO ONE (17:24)
[2017-07-12] MEDS ORDERED: ACETAMINOPHEN 325 MG TABLET (FP) ONE (18:08)
[2017-07-12 19:02] VITALS: BP 124/83; PULSE 82; TEMP 99
== END 2017-07-12 18:07 | disposition home or self-care (01) ==
LOC: JER 14:01
PROC: 3E0337Z Introduction of Electrolytic and Water Balance Substance into Peripheral Vein, Percutaneous Approach (ICD-10-PCS; principal; 2017-07-12)
PROC: 3E033GC Introduction of Other Therapeutic Substance into Peripheral Vein, Percutaneous Approach (ICD-10-PCS; 2017-07-12)
DX: R51 Headache (principal); I10 Essential (primary) hypertension; E78.00 Pure hypercholesterolemia, unspecified; E07.9 Disorder of thyroid, unspecified; K21.9 Gastro-esophageal reflux disease without esophagitis
CPT/HCPCS: 36415; 70450-TC; 80053; 85025; 99282-25

== ENCOUNTER 2017-08-06 23:21 | Emergency (ER) | payer OTHER ==
[2017-08-06 23:28] VITALS: BP 149/86; PULSE 80; TEMP 98.7; BMI 24.3
--- NOTE | 2017-08-06 23:47 | PDOC ---
History of Present Illness - General History Source: Patient - History of Present Illness Initial Comments: 08/06/17 23:56 The patient is a year old female, with a significant past medical history of hypertension, hyperlipidemia, hypothyroidism meningioma (s/p craniotomy), seizure disorder (on Vimpat), and vertigo, who presents to the emergency department with, dizziness and generalized malaise. The patient reports she believes she inadvertently took her evening pills twice. She reports associated chest and throat heaviness. The patient reports associated nausea without emesis and abdominal pain. She denies any suicidal ideation. She denies recent fevers or chills. She denies recent diarrhea or constipation. She denies recent dysuria, frequency, urgency or hematuria. She denies recent shortness of breath. Allergies: NKA Past surgical history:Craniotomy. Social history: Nonsmoker. Denies EtOH use and recreational drug use. <Regine Dodson - Last Filed: 08/07/17 00:26> - General History Source: Patient <Elbert Gutierrez - Last Filed: 08/07/17 02:32> - General Chief Complaint: Overdose Stated Complaint: OVERSODE Time Seen by Provider: 08/06/17 23:38 Past History <Regine Dodson - Last Filed: 08/07/17 00:26> - Past Medical History Anemia: No Asthma: No Cancer: No Cardiac Disorders: No CVA: No COPD: No CHF: No DVT: No Dementia: No Diabetes: No GI Disorders: Yes (GERD) Disorders: No HTN: Yes Hypercholesterolemia: Yes Liver Disease: No Seizures: Yes (had one seizure post op removal of brain tumor) Thyroid Disease: Yes Lung CA: No - Surgical History Abdominal Surgery: No Appendectomy: No Cardiac Surgery: No Cholecystectomy: No Lung Surgery: No Neurologic Surgery: Yes (Removal of brain tumor x2 05/2014) Orthopedic Surgery: No - Suicide/Smoking/Psychosocial Hx Smoking Status: No Smoking History: Never smoked Have you smoked in the past 12 months: No Number of Cigarettes Smoked Daily: 0 Cigars Per Day: 0 Hx Alcohol Use: No Drug/Substance Use Hx: No Substance Use Type: None Hx Substance Use Treatment: No <Elbert Gutierrez - Last Filed: 08/07/17 02:32> - Past Medical History Allergies/Adverse Reactions: Allergies Allergy/AdvReac Type Severity Reaction Status Date / Time No Known Drug Allergies Allergy Verified 08/06/17 23:27 Home Medications: Ambulatory Orders Aspirin [ASA -] 81 mg PO DAILY 07/12/17 Atorvastatin Ca [Lipitor] 20 mg PO HS 07/12/17 Cholecalciferol (Vitamin D3) [Vitamin D3 -] 50,000 unit PO WEEKLY 07/12/17 Famotidine [Pepcid -] 40 mg PO DAILY 07/12/17 Levothyroxine [Synthroid -] 25 mcg PO DAILY 07/12/17 Losartan/Hydrochlorothiazide [Hyzaar 100-25 Tablet] 1 each PO DAILY 07/12/17 Meclizine HCl 12.5 mg PO DAILY PRN 07/12/17 Megestrol Acetate [Megace Es] 625 mg PO DAILY 07/12/17 Metoprolol Succinate [Toprol Xl -] 50 mg PO DAILY 07/12/17 Vitamin B Complex 1 each PO DAILY 07/12/17 Review of Systems - Review of Systems Able to Perform ROS?: Yes Comments:: 08/06/17 23:56 CONSTITUTIONAL: Present: Dizziness. Generalized malaise. Absent: fever, no chills EYES: Absent: visual changes ENT: Present: Throat tightness. Absent: ear pain CARDIOVASCULAR: Present: Chest tightness. Absent: no palpitations RESPIRATORY: Absent: cough, no SOB GI: Present: Abdominal pain. Nausea. Absent: no vomiting, no constipation, no diarrhea GENITOURINARY: Absent: dysuria, no frequency, no hematuria MUSKULOSKELETAL: Absent: back pain, no arthralgia, no myalgia SKIN: Absent: rash NEURO: Absent: headache All Other Systems: Reviewed and Negative <Regine Dodson - Last Filed: 08/07/17 00:26> *Physical Exam - Vital Signs Last Vital Signs Temp Pulse Resp BP Pulse Ox 98.7 F 80 18 149/86 100 08/06/17 23:25 08/06/17 23:25 08/06/17 23:25 08/06/17 23:25 08/06/17 23:25 - Physical Exam Comments: 08/06/17 23:56 +GENERAL: Slightly slurred speech. Mild distress. Well-nourished. HEENT: Normocephalic, atraumatic. PERRL, EOM intact. CARDIOVASCULAR: Normal S1, S2. Regular rate and rhythm. PULMONARY: Clear to auscultation bilaterally. ABDOMEN: Soft, non-distended, non-tender. EXTREMITIES: Normal ROM in all four extremities. No gross deformities. SKIN: Warm, dry. No rash NEUROLOGICAL: No focal neurological deficits. <Regine Dodson - Last Filed: 08/07/17 00:26> - Vital Signs Last Vital Signs Temp Pulse Resp BP Pulse Ox 98.7 F 80 18 149/86 100 08/06/17 23:25 08/06/17 23:25 08/06/17 23:25 08/06/17 23:25 08/06/17 23:25 <Elbert Gutierrez - Last Filed: 08/07/17 02:32> Moderate Sedation - Procedure Monitoring Vital Signs: Vital Signs Temp Pulse Resp BP Pulse Ox 98.7 F 80 18 149/86 100 08/06/17 23:25 08/06/17 23:25 08/06/17 23:25 08/06/17 23:25 08/06/17 23:25 <Regine Dodson - Last Filed: 08/07/17 00:26> - Procedure Monitoring Vital Signs: Vital Signs Temp Pulse Resp BP Pulse Ox 98.7 F 80 18 149/86 100 08/06/17 23:25 08/06/17 23:25 08/06/17 23:25 08/06/17 23:25 08/06/17 23:25 <Elbert Gutierrez - Last Filed: 08/07/17 02:32> Heart Score/ECG Review - ECG Intrepretation Comment:: 08/07/17 00:26 EKG performed at: 07 Aug 2017 0:18:21 Vent Rate 67 bpm WI interval 172 ms QRS duration 106 ms QT/QTc 430/454 ms P-R-T axes 65 20 53 Normal sinus rhythm Possible left atrial enlargement Septal infarct, age determined Abnormal ECG <Regine Dodson - Last Filed: 08/07/17 00:26> ED Treatment Course - LABORATORY CBC & Chemistry Diagram: 08/07/17 00:20 08/07/17 00:20 <Elbert Gutierrez - Last Filed: 08/07/17 02:32> Medical Decision Making - Medical Decision Making 08/07/17 02:31 Dr. Gutierrez: The scribe's documentation has been prepared under my direction and personally reviewed by me in its entirery. I confirm that the note above accurately reflects all work, treatment, procedures, and medical decision making performed by me. Pt feels better. Pt to follow up with her neurosurgeon for re-evaluation of her symptoms. <Elbert Gutierrez - Last Filed: 08/07/17 02:32> *DC/Admit/Observation/Transfer - Attestations Scribe Attestion: 08/06/17 23:57 Documentation prepared by Regine Dodson, acting as medical detailist for Elbert Gutierrez DO. <Regine Dodson - Last Filed: 08/07/17 00:26> - Discharge Dispostion Decision to Admit order: No <Elbert Gutierrez - Last Filed: 08/07/17 02:32> Diagnosis at time of Disposition: Vertigo, Dizziness, Ingestion, drug, inadvertent or accidental - Discharge Dispostion Disposition: HOME Condition at time of disposition: Improved - Patient Instructions Printed Discharge Instructions: DI for Vertigo, DI for Accidental Ingestion -- Adult Additional Instructions: Please follow up with your neurosurgeon tomorrow or as soon as possible for re- evaluation. Return if any problems Print Language: SYRIAC
[2017-08-07 00:40] LABS: BASO % 0.9 % (0-2.0); EOS % 6.3 % (0-4.5); HEMOGLOBIN 12.5 GM/dL (10.7-15.3); LYMPH % 21.1 % (8-40); MCH 28.1 pg (25.7-33.7); MCHC 33.7 g/dl (32.0-36.0); MEAN CELL VOLUME 83.5 fl (80-96); MEAN PLT VOLUME 8.3 fl (7.5-11.1); MONO % 8.4 % (3.8-10.2); NEUT % 63.3 % (42.8-82.8); PLATELET COUNT 195 K/MM3 (134-434); RBC 4.43 M/mm3 (3.60-5.2); RDW 13.6 % (11.6-15.6); WHITE BLOOD COUNT 7.8 K/mm3 (4.0-10.0)
[2017-08-07 00:52] LABS: INR 1.36 (0.82-1.09); PROTHROMBIN TIME (PATIENT) 15.4 SEC (9.7-13.0)
[2017-08-07 01:04] LABS: ALBUMIN 3.6 g/dl (3.4-5.0); ANION GAP 9 (8-16); BILIRUBIN,TOTAL 0.3 mg/dL (0.2-1.0); BLOOD UREA NITROGEN 14 mg/dL (7-18); CALCIUM 8.3 mg/dL (8.5-10.1); CHLORIDE 100 mmol/L (98-107); CO2 29 mmol/L (21-32); CREATININE 0.7 mg/dL (0.55-1.02); GLUCOSE,RANDOM 93 mg/dL (74-106); POTASSIUM 3.3 mmol/L (3.5-5.1); SGOT/AST 16 U/L (15-37); SGPT/ALT 21 U/L (12-78); SODIUM 138 mmol/L (136-145); TOT PROT 6.7 g/dl (6.4-8.2)
[2017-08-07 01:05] LABS: ALK PHOS 134 U/L (45-117)
[2017-08-07 01:11] LABS: URINE APPEARANCE CLEAR; URINE BILIRUBIN NEGATIVE (<2.0 mg/dL); URINE COLOR YELLOW; URINE GLUCOSE (UA) NEGATIVE (NEGATIVE); URINE KETONE NEGATIVE (NEGATIVE); URINE LEUK ESTERASE TRACE (NEGATIVE); URINE NITRITE NEGATIVE (NEGATIVE); URINE PROTEIN NEGATIVE (NEGATIVE); URINE UROBILINOGEN NEGATIVE mg/dL (0.2-1.0)
[2017-08-07] MEDS ORDERED: POTASSIUM CHLORIDE TABS 10 MEQ TABLET.ER (FP) PO ONE (01:25)
[2017-08-07 01:30] LABS: EPI CELLS RARE /HPF (FEW); URINE BACTERIA RARE /hpf (NONE SEEN)
[2017-08-07 01:31] LABS: ACETAMINOPHEN < 2.000 ug/mL; SALICYLATE < 1.700 mg/dL
[2017-08-07 01:45] LABS: COCAINE, UR NEGATIVE ng/ml (CUTOFF=300); METHADONE, UR NEGATIVE ng/ml (CUTOFF=300); OPIATES, URI NEGATIVE ng/ml (CUTOFF=300); PHENCYCLIDINE,URINE NEGATIVE ng/ml (CUTOFF=25); URINE AMPHETAMINES NEGATIVE ng/ml (CUTOFF=500); URINE BARBITURATES NEGATIVE ng/ml (CUTOFF=200); URINE BENZODIAZEPINES NEGATIVE ng/ml (CUTOFF=200)
[2017-08-07] MEDS ORDERED: ONDANSETRON *ODT* 4 MG TABLET SL ONE (01:58)
[2017-08-07] MEDS ORDERED: MECLIZINE HCL 25 MG TABLET (FP) PO STA (01:58)
[2017-08-07] MEDS ORDERED: ONDANSETRON 4 MG/2 ML VIAL IVPUSH STA (01:59)
[2017-08-07] MEDS ORDERED: POTASSIUM CHLORIDE TABS 20 MEQ TABLET.ER (FP) PO ONE (02:08)
[2017-08-07] MEDS ORDERED: MECLIZINE HCL 25 MG TABLET (FP) ONE (02:08)
[2017-08-07] MEDS ORDERED: ONDANSETRON 4 MG/2 ML VIAL ONE (02:09)
--- NOTE | 2017-08-07 14:26 | EKG ---
Test Reason : Blood Pressure : / mmHG Vent. Rate : 067 BPM Atrial Rate : 067 BPM P-R Int : 172 ms QRS Dur : 106 ms QT Int : 430 ms P-R-T Axes : 065 020 053 degrees QTc Int : 454 ms NORMAL SINUS RHYTHM POSSIBLE LEFT ATRIAL ENLARGEMENT SEPTAL INFARCT , AGE UNDETERMINED ABNORMAL ECG WHEN COMPARED WITH ECG OF 14-MAY-2017 09:41, SEPTAL INFARCT IS NOW PRESENT Confirmed by LANG WOLFE, JADA ([id number]) on 08/07/2017 2:26:31 PM Referred By: Confirmed By:JADA CROFT MD
== END 2017-08-07 02:41 | disposition home or self-care (01) ==
LOC: JER 23:21
PROC: 3E033GC Introduction of Other Therapeutic Substance into Peripheral Vein, Percutaneous Approach (ICD-10-PCS; principal; 2017-08-06)
DX: T50.901A Poisoning by unspecified drugs, medicaments and biological substances, accidental (unintentional), initial encounter (principal); R11.0 Nausea; E78.5 Hyperlipidemia, unspecified; E03.9 Hypothyroidism, unspecified; G40.909 Epilepsy, unspecified, not intractable, without status epilepticus; Z79.82 Long term (current) use of aspirin
CPT/HCPCS: 36415; 80053; 80307; 81003; 81015; 85025; 85610; 93005; 93010; 99282-25

== ENCOUNTER 2018-02-16 03:27 | Emergency (ER) | payer OTHER ==
[2018-02-16 03:41] VITALS: BMI 24.1
--- NOTE | 2018-02-16 04:38 | PDOC ---
History of Present Illness - General Chief Complaint: Shortness of Breath Stated Complaint: COLD SYMPTOMS/SOB/CHEST PAIN History Source: Patient, Significant Other - History of Present Illness Initial Comments: 02/16/18 04:37 Pt woke up gasping and hyperventilating. She has HTN, Asthma, seizures, meningioma surgeries, hypothyroind on synthroid. Severity: mild Past History - Past Medical History Allergies/Adverse Reactions: Allergies Allergy/AdvReac Type Severity Reaction Status Date / Time No Known Drug Allergies Allergy Verified 02/16/18 04:14 Home Medications: Ambulatory Orders Aspirin [ASA -] 81 mg PO DAILY 07/12/17 Atorvastatin Ca [Lipitor] 20 mg PO HS 07/12/17 Cholecalciferol (Vitamin D3) [Vitamin D3 -] 50,000 unit PO WEEKLY 07/12/17 Famotidine [Pepcid -] 40 mg PO DAILY 07/12/17 Levothyroxine [Synthroid -] 25 mcg PO DAILY 07/12/17 Losartan/Hydrochlorothiazide [Hyzaar 100-25 Tablet] 1 each PO DAILY 07/12/17 Meclizine HCl 12.5 mg PO DAILY PRN 07/12/17 Megestrol Acetate [Megace Es] 625 mg PO DAILY 07/12/17 Metoprolol Succinate [Toprol Xl -] 50 mg PO DAILY 07/12/17 Vitamin B Complex 1 each PO DAILY 07/12/17 Cephalexin [Keflex] 250 mg PO QID #40 capsule 02/16/18 Anemia: No Asthma: No Cancer: No Cardiac Disorders: No CVA: No COPD: No CHF: No DVT: No Dementia: No Diabetes: No GI Disorders: Yes (GERD) Disorders: No HTN: Yes Hypercholesterolemia: Yes Liver Disease: No Seizures: Yes (had one seizure post op removal of brain tumor) Thyroid Disease: Yes Lung CA: No - Surgical History Abdominal Surgery: No Appendectomy: No Cardiac Surgery: No Cholecystectomy: No Lung Surgery: No Neurologic Surgery: Yes (Removal of brain tumor x2 05/2014) Orthopedic Surgery: No - Immunization History Immunization Up to Date: Yes - Suicide/Smoking/Psychosocial Hx Smoking Status: No Smoking History: Never smoked Have you smoked in the past 12 months: No Number of Cigarettes Smoked Daily: 0 Cigars Per Day: 0 Information on smoking cessation initiated: No Hx Alcohol Use: No Drug/Substance Use Hx: No Substance Use Type: None Hx Substance Use Treatment: No *Physical Exam - Vital Signs Last Vital Signs Temp Pulse Resp BP Pulse Ox 99.1 F 74 18 126/78 98 02/16/18 03:34 02/16/18 03:34 02/16/18 03:34 02/16/18 03:34 02/16/18 03:54 Moderate Sedation - Procedure Monitoring Vital Signs: Procedure Monitoring Vital Signs Temperature 99.1 F 02/16/18 03:34 Pulse Rate 74 02/16/18 03:34 Respiratory Rate 18 02/16/18 03:34 Blood Pressure 126/78 02/16/18 03:34 O2 Sat by Pulse Oximetry (%) 98 02/16/18 03:54 ED Treatment Course - LABORATORY CBC & Chemistry Diagram: 02/16/18 04:51 02/16/18 04:51 Medical Decision Making - Medical Decision Making 02/16/18 04:43 Pt's EKG is normal. 02/16/18 06:03 Pt has strep and we will treat with keflex 250 QID x 10 days *DC/Admit/Observation/Transfer Diagnosis at time of Disposition: Strep pharyngitis - Discharge Dispostion Disposition: HOME Condition at time of disposition: Improved Decision to Admit order: No - Prescriptions Prescriptions: Cephalexin [Keflex] 250 mg PO QID #40 capsule - Referrals Referrals: Ozzie Borges MD [Primary Care Provider] - - Patient Instructions Printed Discharge Instructions: DI for Strep Throat Print Language: TELUGU - Post Discharge Activity Forms/Work/School Notes: Back to Work
[2018-02-16 05:32] LABS: BASO % 0.8 % (0-2.0); EOS % 6.2 % (0-4.5); HEMATOCRIT 38.6 % (32.4-45.2); HEMOGLOBIN 12.5 GM/dL (10.7-15.3); LYMPH % 24.7 % (8-40); MCH 27.3 pg (25.7-33.7); MCHC 32.5 g/dl (32.0-36.0); MEAN PLT VOLUME 7.9 fl (7.5-11.1); NEUT % 59.3 % (42.8-82.8); PLATELET COUNT 224 K/MM3 (134-434); RBC 4.59 M/mm3 (3.60-5.2); RDW 13.8 % (11.6-15.6); WHITE BLOOD COUNT 7.2 K/mm3 (4.0-10.0)
[2018-02-16 05:46] LABS: INR 1.31 (0.83-1.09); PROTHROMBIN TIME (PATIENT) 15.5 SEC (9.7-13.0)
[2018-02-16] MEDS ORDERED: CEPHALEXIN MONOHYDRATE 500 MG CAPSULE (UD) PO ONE (05:56)
[2018-02-16 05:58] LABS: ALBUMIN 3.6 g/dl (3.4-5.0); ALK PHOS 113 U/L (45-117); ANION GAP 10 MMOL/L (8-16); BILIRUBIN,TOTAL 0.3 mg/dL (0.2-1); BLOOD UREA NITROGEN 15 mg/dL (7-18); CALCIUM 8.6 mg/dL (8.5-10.1); CHLORIDE 107 mmol/L (98-107); CO2 27 mmol/L (21-32); CREATININE 0.7 mg/dL (0.55-1.3); GLUCOSE,RANDOM 78 mg/dL (74-106); POTASSIUM 3.8 mmol/L (3.5-5.1); SGOT/AST 15 U/L (15-37); SGPT/ALT 17 U/L (13-61); SODIUM 144 mmol/L (136-145); TOT PROT 6.7 g/dl (6.4-8.2)
[2018-02-16] MEDS ORDERED: CEPHALEXIN MONOHYDRATE 500 MG CAPSULE (UD) ONE (06:00)
[2018-02-16 06:09] VITALS: BP 140/72; PULSE 67; TEMP 98.5
--- NOTE | 2018-02-17 11:21 | EKG ---
Test Reason : Blood Pressure : / mmHG Vent. Rate : 076 BPM Atrial Rate : 076 BPM P-R Int : 158 ms QRS Dur : 094 ms QT Int : 414 ms P-R-T Axes : 070 032 057 degrees QTc Int : 465 ms NORMAL SINUS RHYTHM PROBABLE INCOMPLETE RBBB WHEN COMPARED WITH ECG OF 07-AUG-2017 00:18, NO SIGNIFICANT CHANGE WAS FOUND Confirmed by PALOMO BOND MD ([id number]) on 02/17/2018 11:21:32 AM Referred By: Confirmed By:PALOMO BOND MD
== END 2018-02-16 06:26 | disposition home or self-care (01) ==
LOC: JER 03:27
DX: J02.0 Streptococcal pharyngitis (principal); I10 Essential (primary) hypertension; K21.9 Gastro-esophageal reflux disease without esophagitis; E78.00 Pure hypercholesterolemia, unspecified
CPT/HCPCS: 36415; 70360-TC-FY; 71046-TC-FY; 80053; 82550; 82553; 84484; 85025; 85610; 87070; 93005; 93010; 99283-25

== ENCOUNTER 2018-12-16 02:21 | Emergency (ER) | payer OTHER ==
[2018-12-16 02:35] VITALS: BMI 23.2
--- NOTE | 2018-12-16 03:34 | PDOC ---
History of Present Illness - General Chief Complaint: Blood Pressure Problem Stated Complaint: BLOOD PRESSURE PROBLEM Time Seen by Provider: 12/16/18 03:34 Past History - Past Medical History Allergies/Adverse Reactions: Allergies Allergy/AdvReac Type Severity Reaction Status Date / Time No Known Drug Allergies Allergy Verified 12/16/18 02:35 Home Medications: Ambulatory Orders Aspirin [ASA -] 81 mg PO DAILY 07/12/17 Atorvastatin Ca [Lipitor] 20 mg PO HS 07/12/17 Cholecalciferol (Vitamin D3) [Vitamin D3 -] 50,000 unit PO WEEKLY 07/12/17 Famotidine [Pepcid -] 40 mg PO DAILY 07/12/17 Levothyroxine [Synthroid -] 25 mcg PO DAILY 07/12/17 Losartan/Hydrochlorothiazide [Hyzaar 100-25 Tablet] 1 each PO DAILY 07/12/17 Meclizine HCl 12.5 mg PO DAILY PRN 07/12/17 Megestrol Acetate [Megace Es] 625 mg PO DAILY 07/12/17 Metoprolol Succinate [Toprol Xl -] 50 mg PO DAILY 07/12/17 Vitamin B Complex 1 each PO DAILY 07/12/17 Cephalexin [Keflex] 250 mg PO QID #40 capsule 02/16/18 Anemia: No Asthma: No Cancer: No Cardiac Disorders: No CVA: No COPD: No CHF: No DVT: No Dementia: No Diabetes: No GI Disorders: Yes (GERD) Disorders: No HTN: Yes Hypercholesterolemia: Yes Liver Disease: No Seizures: Yes (had one seizure post op removal of brain tumor) Thyroid Disease: Yes Lung CA: No - Surgical History Abdominal Surgery: No Appendectomy: No Cardiac Surgery: No Cholecystectomy: No Lung Surgery: No Neurologic Surgery: Yes (Removal of brain tumor x2 05/2014) Orthopedic Surgery: No - Immunization History Immunization Up to Date: Yes - Psycho Social/Smoking Cessation Hx Smoking Status: No Smoking History: Never smoked Have you smoked in the past 12 months: No Number of Cigarettes Smoked Daily: 0 Cigars Per Day: 0 Hx Alcohol Use: No Drug/Substance Use Hx: No Substance Use Type: None Hx Substance Use Treatment: No *Physical Exam - Vital Signs Last Vital Signs Temp Pulse Resp BP Pulse Ox 98.9 F 74 18 142/83 97 12/16/18 02:33 12/16/18 02:33 12/16/18 02:33 12/16/18 02:33 12/16/18 02:33 ED Treatment Course - LABORATORY CBC & Chemistry Diagram: 12/16/18 04:48 12/16/18 04:48 Medical Decision Making - Medical Decision Making HPI: 58yo F with PMH of HTN, HLD, meningioma s/p craniotomy, seizures on vimpat, vertigo on meclizine presenting with high blood pressure reading. Patient states she was feeling poorly around 1:30am: she had a headache and left arm heaviness, but no chest pain or shortness of breath. She checked her blood pressure and noted it to be high, 176 systolic. She checked it again and the number was 166 systolic. Her blood pressure is normally 120 systolic, but it had been in the 150s on Sat and Sun. Out of concern for the high blood pressure level, patient came to the ER for further evaluation. Does not currently have any headache or left arm heaviness. No fevers or chills. ROS: Constitutional: no fever, no chills HEENT: no throat pain, no dysphagia Cardiovascular: no chest pain, no palpitations Respiratory: no cough, no shortness of breath Gastrointestinal: no abdominal pain, no nausea Genitourinary: no dysuria, no hematuria Musculoskeletal: no myalgia, no arthralgia Skin: no rash, no itching Neurologic: +headache, no weakness PE: General: Awake, alert, and fully oriented, in no acute distress Head: No signs of trauma Eyes: EOMI, sclera anicteric ENT: Moist mucus membranes Neck: Normal ROM, supple Lungs: Lungs clear, Normal breath sounds Cardio: Regular rhythm, S1 and S2 present Abdomen: Soft, nontender. No guarding, no rebound, no masses Extremities: Normal range of motion, Distal pulses present SKIN: Warm, Dry, normal turgor Neurologic: Cranial nerves II through XII intact. Normal speech, sensation, strength, coordination, and gait. ED Course/MDM: DDX including but not limited to hypertensive urgency vs. emergency, ACS, ARSENIO, normal variant Labs, EKG, CXR EKG: rate 66, QTc 442, NSR 12/16/18 03:34 CBC WBC 7.1 K/mm3 (4.0-10.0) 12/16/18 04:48 RBC 4.69 M/mm3 (3.60-5.2) 12/16/18 04:48 Hgb 13.0 GM/dL (10.7-15.3) 12/16/18 04:48 Hct 39.0 % (32.4-45.2) 12/16/18 04:48 MCV 83.1 fl (80-96) 12/16/18 04:48 MCH 27.8 pg (25.7-33.7) 12/16/18 04:48 MCHC 33.4 g/dl (32.0-36.0) 12/16/18 04:48 RDW 14.3 % (11.6-15.6) 12/16/18 04:48 Plt Count 238 K/MM3 (134-434) 12/16/18 04:48 MPV 7.5 fl (7.5-11.1) 12/16/18 04:48 Absolute Neuts (auto) 4.2 K/mm3 (1.5-8.0) 12/16/18 04:48 Neutrophils % 59.0 % (42.8-82.8) 12/16/18 04:48 Lymphocytes % 24.6 % (8-40) 12/16/18 04:48 Monocytes % 9.5 % (3.8-10.2) 12/16/18 04:48 Eosinophils % 6.1 % (0-4.5) H 12/16/18 04:48 Basophils % 0.8 % (0-2.0) 12/16/18 04:48 Nucleated RBC % 0 % (0-0) 12/16/18 04:48 No leukocytosis CMP Sodium 140 mmol/L (136-145) 12/16/18 04:48 Potassium 3.8 mmol/L (3.5-5.1) 12/16/18 04:48 Chloride 107 mmol/L (98-107) 12/16/18 04:48 Carbon Dioxide 27 mmol/L (21-32) 12/16/18 04:48 Anion Gap 7 MMOL/L (8-16) L 12/16/18 04:48 BUN 12.4 mg/dL (7-18) 12/16/18 04:48 Creatinine 0.7 mg/dL (0.55-1.3) 12/16/18 04:48 Est GFR (CKD-EPI)AfAm 111.47 12/16/18 04:48 Est GFR (CKD-EPI)NonAf 96.18 12/16/18 04:48 Random Glucose 84 mg/dL (74-106) 12/16/18 04:48 Calcium 8.7 mg/dL (8.5-10.1) 12/16/18 04:48 Total Bilirubin 0.5 mg/dL (0.2-1) 12/16/18 04:48 AST 13 U/L (15-37) L 12/16/18 04:48 ALT 17 U/L (13-61) 12/16/18 04:48 Alkaline Phosphatase 105 U/L (45-117) 12/16/18 04:48 Creatine Kinase 130 U/L (26-192) 12/16/18 04:48 Troponin I < 0.02 ng/ml (0.00-0.05) 12/16/18 04:48 Total Protein 7.1 g/dl (6.4-8.2) 12/16/18 04:48 Albumin 3.8 g/dl (3.4-5.0) 12/16/18 04:48 Electrolytes unremarkable Normal creatinine Tpn undetectable EKG: rate 66, QTc 442, NSR 12/16/18 06:55 Patient signed out to day team Pending CXR Pending repeat tpn at 7:45am 12/16/18 08:00 Discharge - Discharge Information Problems reviewed: Yes Clinical Impression/Diagnosis: Hypertension Qualifiers: Hypertension type: unspecified Qualified Code(s): I10 - Essential (primary) hypertension Condition: Stable Disposition: HOME - Follow up/Referral Referrals: Ozzie Borges MD [Primary Care Provider] - - Patient Discharge Instructions Patient Printed Discharge Instructions: DI for High Blood Pressure Additional Instructions: You came to the emergency department for high blood pressure. Labs, EKG, and Xray did not indicate acute pathology. Follow-up with your primary care provider this week to discuss this ED visit and to further evaluate your symptoms. Your workup is not complete until you do so. Call and make an appointment. Immediate medical attention is required if you experience: severe headache, have a seizure, have focal numbness or weakness, chest pain, shortness of breath , or any new or concerning symptoms. If you think you are having an emergency, call for emergency medical services or present to the emergency department right away. - Post Discharge Activity Work/Back to School Note: Back to Work
--- NOTE | 2018-12-16 04:55 | PDOC ---
Attending Attestation - Resident Resident Name: Jose Harperth - ED Attending Attestation I have performed the following: I have examined & evaluated the patient, The case was reviewed & discussed with the resident, I agree w/resident's findings & plan - HPI HPI: 12/16/18 19:42 see resident hpi - Physicial Exam PE: 12/16/18 19:42 agree with resident exam - Medical Decision Making 12/16/18 19:43 58-year-old female with hypertension and an episode of left arm heaviness CT scan of the brain, labs, EKG Case signed out to day shift, first troponin negative, plan for repeat troponin and reevaluation
[2018-12-16 04:57] LABS: BASO % 0.8 % (0-2.0); EOS % 6.1 % (0-4.5); LYMPH % 24.6 % (8-40); MCH 27.8 pg (25.7-33.7); MCHC 33.4 g/dl (32.0-36.0); MEAN CELL VOLUME 83.1 fl (80-96); MEAN PLT VOLUME 7.5 fl (7.5-11.1); MONO % 9.5 % (3.8-10.2); PLATELET COUNT 238 K/MM3 (134-434); RBC 4.69 M/mm3 (3.60-5.2); RDW 14.3 % (11.6-15.6); WHITE BLOOD COUNT 7.1 K/mm3 (4.0-10.0)
[2018-12-16 05:14] LABS: INR 1.34 (0.83-1.09); PROTHROMBIN TIME (PATIENT) 15.9 SEC (9.7-13.0)
[2018-12-16 05:27] LABS: ALBUMIN 3.8 g/dl (3.4-5.0); BILIRUBIN,TOTAL 0.5 mg/dL (0.2-1); BLOOD UREA NITROGEN 12.4 mg/dL (7-18); CALCIUM 8.7 mg/dL (8.5-10.1); CREATININE 0.7 mg/dL (0.55-1.3); POTASSIUM 3.8 mmol/L (3.5-5.1); TOT PROT 7.1 g/dl (6.4-8.2)
--- NOTE | 2018-12-16 07:51 | PDOC ---
*Physical Exam - Vital Signs Last Vital Signs Temp Pulse Resp BP Pulse Ox 98.9 F 74 18 142/83 97 12/16/18 02:33 12/16/18 02:33 12/16/18 02:33 12/16/18 02:33 12/16/18 02:33 ED Treatment Course - LABORATORY CBC & Chemistry Diagram: 12/16/18 04:48 12/16/18 04:48 - ADDITIONAL ORDERS Additional order review: Laboratory Results 12/16/18 12/16/18 12/16/18 04:48 04:48 04:48 PT with INR 15.90 H INR 1.34 H Sodium 140 Potassium 3.8 Chloride 107 Carbon Dioxide 27 Anion Gap 7 L BUN 12.4 Creatinine 0.7 Est GFR (CKD-EPI)AfAm 111.47 Est GFR (CKD-EPI)NonAf 96.18 Random Glucose 84 Calcium 8.7 Total Bilirubin 0.5 AST 13 L ALT 17 Alkaline Phosphatase 105 Creatine Kinase 130 Troponin I < 0.02 Total Protein 7.1 Albumin 3.8 12/16/18 04:48 RBC 4.69 MCV 83.1 MCHC 33.4 RDW 14.3 MPV 7.5 Neutrophils % 59.0 Lymphocytes % 24.6 Monocytes % 9.5 Eosinophils % 6.1 H Basophils % 0.8 Medical Decision Making - Medical Decision Making 12/16/18 07:[address] Harper. Ms. Jennings is a 58 yo female w/ pmh of HTN, HLD, meningioma s/p craniotomy, seizures (on vimpat), and vertigo controlled w/ meclizine who presents for evaluation of high BP at home w/ left sided arm symptoms. Patient BP in ED normal; first troponin negative. CXR negative. Patient currently pending 2nd troponin and UA for dispo. 12/16/18 09:45 Repeat troponin likewise negative. UA negative. No concern for acute process at this time and patient reporting improvement of symptoms. Discharging to home for further outpatient evaluation. Discharge - Discharge Information Problems reviewed: Yes Clinical Impression/Diagnosis: Hypertension Qualifiers: Hypertension type: unspecified Qualified Code(s): I10 - Essential (primary) hypertension Disposition: HOME - Follow up/Referral Referrals: Ozzie Borges MD [Primary Care Provider] - - Patient Discharge Instructions Patient Printed Discharge Instructions: DI for High Blood Pressure Additional Instructions: You came to the emergency department for high blood pressure. Labs, EKG, and Xray did not indicate acute pathology. Follow-up with your primary care provider this week to discuss this ED visit and to further evaluate your symptoms. Your workup is not complete until you do so. Call and make an appointment. Immediate medical attention is required if you experience: severe headache, have a seizure, have focal numbness or weakness, chest pain, shortness of breath , or any new or concerning symptoms. If you think you are having an emergency, call for emergency medical services or present to the emergency department right away. - Post Discharge Activity
[2018-12-16 09:43] LABS: EPI CELLS 0.4 /HPF (0-5/HPF); HYALINE CASTS 1 /lpf (0-8); PH,URINE 6.5 (5.0-8.0); URINE APPEARANCE CLEAR; URINE BACTERIA 2.5 /hpf (NEGATIVE); URINE BILIRUBIN NEGATIVE (NEGATIVE); URINE COLOR YELLOW; URINE GLUCOSE (UA) NEGATIVE (NEGATIVE); URINE KETONE NEGATIVE (NEGATIVE); URINE LEUK ESTERASE NEGATIVE (NEGATIVE); URINE NITRITE NEGATIVE (NEGATIVE); URINE PROTEIN NEGATIVE (NEGATIVE); URINE RBC 4 /hpf (0-4); URINE UROBILINOGEN 0.2 mg/dL (0.2-1.0); URINE WBC 1 /hpf (0-5)
--- NOTE | 2018-12-16 10:02 | EKG ---
Test Reason : Blood Pressure : / mmHG Vent. Rate : 066 BPM Atrial Rate : 066 BPM P-R Int : 162 ms QRS Dur : 088 ms QT Int : 422 ms P-R-T Axes : 051 019 042 degrees QTc Int : 442 ms NORMAL SINUS RHYTHM SEPTAL INFARCT , AGE UNDETERMINED ABNORMAL ECG WHEN COMPARED WITH ECG OF 16-FEB-2018 03:41, NO SIGNIFICANT CHANGE WAS FOUND Confirmed by MD ALEXIS, FOREST ([id number]) on 12/16/2018 10:02:31 AM Referred By: Confirmed By:FOREST ESPINOZA MD
[2018-12-16 10:23] VITALS: BP 144/73; PULSE 66; TEMP 97.7
== END 2018-12-16 10:23 | disposition home or self-care (01) ==
LOC: JER 02:21
DX: I10 Essential (primary) hypertension (principal); G40.909 Epilepsy, unspecified, not intractable, without status epilepticus; R42 Dizziness and giddiness; E78.5 Hyperlipidemia, unspecified; Z98.890 Other specified postprocedural states
CPT/HCPCS: 36415; 71046-TC-FY; 80053; 81003; 82550; 84484; 85025; 85610; 87086; 93005; 93010; 99283-25

== ENCOUNTER 2019-04-01 15:34 | Emergency (ER) | payer OTHER ==
[2019-04-01] MEDS ORDERED: DEXAMETHASONE LIQUID 0.5 MG/5 ML PO ONE (15:48)
[2019-04-01] MEDS ORDERED: ALBUTEROL SO4 2.5/IPRATROPIUM 0.5 INH SOL 3 ML VIAL.NEB. NEB ONE (15:48)
--- NOTE | 2019-04-01 15:48 | PDOC ---
Rapid Medical Evaluation Time Seen by Provider: 04/01/19 15:44 Medical Evaluation: Allergies Allergy/AdvReac Type Severity Reaction Status Date / Time No Known Drug Allergies Allergy Verified 12/16/18 02:35 04/01/19 15:45 Pt presents for evaluation of cough and wheezing for one week. Pt states she also has some chest pain which is worse with coughing and taking a deep breath. Exam: scattered wheezing, no respiratory distress. Orders: EKG, Xray, duoneb, decadron Pt to proceed to the ER for evaluation Discharge Disposition - Diagnosis Wheezing - Discharge Dispostion Condition at time of disposition: Stable - Referrals - Patient Instructions - Post Discharge Activity
[2019-04-01 15:55] VITALS: BP 144/79; PULSE 87; TEMP 98.4; BMI 27.3
--- NOTE | 2019-04-01 16:04 | PDOC ---
History of Present Illness - General Chief Complaint: Cold Symptoms Stated Complaint: COUGH/ EMPLOYEE Time Seen by Provider: 04/01/19 15:44 History Source: Patient - History of Present Illness Timing/Duration: reports: week Past History - Past Medical History Allergies/Adverse Reactions: Allergies Allergy/AdvReac Type Severity Reaction Status Date / Time No Known Drug Allergies Allergy Verified 12/16/18 02:35 Home Medications: Ambulatory Orders Aspirin [ASA -] 81 mg PO DAILY 07/12/17 Atorvastatin Ca [Lipitor] 20 mg PO HS 07/12/17 Cholecalciferol (Vitamin D3) [Vitamin D3 -] 50,000 unit PO WEEKLY 07/12/17 Famotidine [Pepcid -] 40 mg PO DAILY 07/12/17 Levothyroxine [Synthroid -] 25 mcg PO DAILY 07/12/17 Losartan/Hydrochlorothiazide [Hyzaar 100-25 Tablet] 1 each PO DAILY 07/12/17 Meclizine HCl 12.5 mg PO DAILY PRN 07/12/17 Megestrol Acetate [Megace Es] 625 mg PO DAILY 07/12/17 Metoprolol Succinate [Toprol Xl -] 50 mg PO DAILY 07/12/17 Vitamin B Complex 1 each PO DAILY 07/12/17 Cephalexin [Keflex] 250 mg PO QID #40 capsule 02/16/18 Anemia: No Asthma: No Cancer: No Cardiac Disorders: No CVA: No COPD: No CHF: No DVT: No Dementia: No Diabetes: No GI Disorders: Yes (GERD) Disorders: No HTN: Yes Hypercholesterolemia: Yes Liver Disease: No Seizures: Yes (had one seizure post op removal of brain tumor) Thyroid Disease: Yes Lung CA: No - Surgical History Abdominal Surgery: No Appendectomy: No Cardiac Surgery: No Cholecystectomy: No Lung Surgery: No Neurologic Surgery: Yes (Removal of brain tumor x2 05/2014) Orthopedic Surgery: No - Immunization History Immunization Up to Date: Yes - Psycho Social/Smoking Cessation Hx Smoking Status: No Smoking History: Unknown if ever smoked Have you smoked in the past 12 months: No Number of Cigarettes Smoked Daily: 0 Cigars Per Day: 0 Information on smoking cessation initiated: No Hx Alcohol Use: No Drug/Substance Use Hx: No Substance Use Type: None Hx Substance Use Treatment: No Review of Systems - Review of Systems Constitutional: No: Chills, Fever Respiratory: Yes: Cough, Wheezing. No: Shortness of Breath, Hemoptysis Cardiac (ROS): Yes: Chest Pain *Physical Exam - Vital Signs Last Vital Signs Temp Pulse Resp BP Pulse Ox 98.4 F 87 16 144/79 98 04/01/19 15:46 04/01/19 15:46 04/01/19 15:46 04/01/19 15:46 04/01/19 15:46 - Physical Exam General Appearance: Yes: Appropriately Dressed. No: Apparent Distress HEENT: positive: Normal ENT Inspection, Normal Voice, TMs Normal, Pharynx Normal. negative: Scleral Icterus (R), Scleral Icterus (L) Neck: positive: Supple Respiratory/Chest: positive: Wheezing. negative: Respiratory Distress Cardiovascular: positive: Regular Rate, S1, S2 Integumentary: positive: Dry, Warm Neurologic: positive: Fully Oriented, Normal Mood/Affect Medical Decision Making - Medical Decision Making 04/01/19 15:59 58-year-old female history of hypertension, here with mostly non-productive cough x1 week with wheezing. No chest pain, SOB, body aches, fever or chills. No history of asthma or tob use. No history of pneumonia. see exam Possible RAD in setting of URI, r/o PNA -stable w/ diffuse wheezing -duonebs and steroid ordered from triage -cxr 04/01/19 16:39 Chest x-ray negative. Patient improved s/p nebs. Lungs now clear to auscultation and able to ambulate without shortness of breath. Patient reports she already has rescue inhalers ta home. Will dc w/ supportive tx. To return as needed. PMD f/u Discharge - Discharge Information Problems reviewed: Yes Clinical Impression/Diagnosis: Wheezing URI (upper respiratory infection) Qualifiers: URI type: unspecified viral URI Qualified Code(s): J06.9 - Acute upper respiratory infection, unspecified Condition: Improved Disposition: HOME - Follow up/Referral Referrals: Ozzie Borges MD [Primary Care Provider] - - Patient Discharge Instructions Patient Printed Discharge Instructions: DI for Viral Upper Respiratory Infection -- Adult, DI for Reactive Airway Disease-Adult Additional Instructions: Use your rescue inhalers as needed for shortness of breath and wheezing. Rest maintain adequate hydration. Return to ER for any worsening of symptoms - Post Discharge Activity
[2019-04-01] MEDS ORDERED: DEXAMETHASONE SOD PHOSPHATE 10 MG/1 ML VIAL ONE (16:15)
== END 2019-04-01 16:51 | disposition home or self-care (01) ==
LOC: JERFT 15:34
PROC: 3E0F7GC Introduction of Other Therapeutic Substance into Respiratory Tract, Via Natural or Artificial Opening (ICD-10-PCS; principal; 2019-04-01)
DX: J06.9 Acute upper respiratory infection, unspecified (principal); I10 Essential (primary) hypertension; K21.9 Gastro-esophageal reflux disease without esophagitis; E78.00 Pure hypercholesterolemia, unspecified; R56.9 Unspecified convulsions; E07.9 Disorder of thyroid, unspecified
CPT/HCPCS: 71046-TC-FY; 99281-25

== ENCOUNTER 2020-04-30 13:46 | Emergency (ER) | payer OTHER ==
[2020-04-30 13:55] VITALS: BP 143/84; PULSE 88; TEMP 98.2; BMI 23.6
[2020-04-30] MEDS ORDERED: MECLIZINE HCL 25 MG TABLET (FP) PO ONE (15:11)
[2020-04-30] MEDS ORDERED: MECLIZINE HCL 25 MG TABLET (FP) ONE (15:37)
[2020-04-30 16:02] LABS: EPI CELLS 7 /uL (0-25.1); HYALINE CASTS 1 /uL (0-3.1); URINE APPEARANCE CLEAR; URINE BACTERIA 23 /uL (0-1359); URINE BILIRUBIN NEGATIVE (NEGATIVE); URINE COLOR DK YELLOW; URINE GLUCOSE (UA) NEGATIVE (NEGATIVE); URINE KETONE TRACE (NEGATIVE); URINE LEUK ESTERASE TRACE (NEGATIVE); URINE NITRITE NEGATIVE (NEGATIVE); URINE PROTEIN NEGATIVE (NEGATIVE); URINE RBC 26 /uL (0-23.9); URINE UROBILINOGEN 0.2 mg/dL (0.2-1.0); URINE WBC 10 /uL (0-25.8)
[2020-04-30 16:03] LABS: BASO % 0.9 % (0-2.0); EOS % 4.3 % (0-4.5); HEMATOCRIT 38.7 % (32.4-45.2); LYMPH % 28.9 % (8-40); MCHC 33.5 g/dl (32.0-36.0); MEAN CELL VOLUME 83.7 fl (80-96); MEAN PLT VOLUME 7.9 fl (7.5-11.1); MONO % 9.1 % (3.8-10.2); NEUT % 56.8 % (42.8-82.8); PLATELET COUNT 224 K/MM3 (134-434); RBC 4.63 M/mm3 (3.60-5.2); RDW 13.9 % (11.6-15.6); WHITE BLOOD COUNT 6.1 K/mm3 (4.0-10.0)
[2020-04-30 16:33] LABS: CHLORIDE 104 mmol/L (98-107); POTASSIUM 3.9 mmol/L (3.5-5.1); SODIUM 139 mmol/L (136-145)
[2020-04-30 16:35] LABS: CALCIUM 8.7 mg/dL (8.5-10.1)
[2020-04-30 16:36] LABS: ALBUMIN 3.8 g/dl (3.4-5.0); ANION GAP 4 MMOL/L (8-16); BLOOD UREA NITROGEN 15.7 mg/dL (7-18); CO2 31 mmol/L (21-32); GLUCOSE,RANDOM 88 mg/dL (74-106)
[2020-04-30 16:39] LABS: CREATININE 0.7 mg/dL (0.55-1.3); SGOT/AST 17 U/L (15-37); SGPT/ALT 28 U/L (13-61)
[2020-04-30 16:40] LABS: BILIRUBIN,TOTAL 0.3 mg/dL (0.2-1); TOT PROT 7.3 g/dl (6.4-8.2)
[2020-04-30 16:42] LABS: ALK PHOS 145 U/L (45-117)
== END 2020-04-30 18:49 | disposition home or self-care (01) ==
LOC: JER 13:46
DX: R42 Dizziness and giddiness (principal); N32.81 Overactive bladder
CPT/HCPCS: 36415; 70450-TC; 71046-TC-FY; 80053; 81003; 84484; 85025; 87086; 93005; 93010; 99285-25; C9803; U0003

== ENCOUNTER 2021-01-20 22:24 | Emergency (ER) | payer OTHER ==
[2021-01-20 22:36] VITALS: BMI 24.0
[2021-01-21 01:09] LABS: BASO % 1.1 % (0-2.0); EOS % 6.9 % (0-4.5); HEMATOCRIT 39.8 % (32.4-45.2); HEMOGLOBIN 13.6 GM/dL (10.7-15.3); LYMPH % 27.3 % (8-40); MCH 27.8 pg (25.7-33.7); MCHC 34.1 g/dl (32.0-36.0); MEAN CELL VOLUME 81.5 fl (80-96); MEAN PLT VOLUME 7.5 fl (7.5-11.1); MONO % 8.7 % (3.8-10.2); PLATELET COUNT 222 10^3/uL (134-434); RBC 4.89 M/mm3 (3.60-5.2); RDW 13.6 % (11.6-15.6)
[2021-01-21 01:28] LABS: CHLORIDE 104 mmol/L (98-107); SODIUM 141 mmol/L (136-145)
[2021-01-21 01:30] LABS: ALBUMIN 3.7 g/dl (3.4-5.0); ANION GAP 7 MMOL/L (8-16); BLOOD UREA NITROGEN 14.5 mg/dL (7-18); CALCIUM 8.7 mg/dL (8.5-10.1); CO2 30 mmol/L (21-32); GLUCOSE,RANDOM 102 mg/dL (74-106)
[2021-01-21 01:33] LABS: CREATININE 0.7 mg/dL (0.55-1.3); SGOT/AST 32 U/L (15-37); SGPT/ALT 44 U/L (13-61)
[2021-01-21 01:36] LABS: ALK PHOS 143 U/L (45-117); BILIRUBIN,TOTAL 0.2 mg/dL (0.2-1); TOT PROT 7.4 g/dl (6.4-8.2)
[2021-01-21 02:41] LABS: EPI CELLS 1 /uL (0-25.1); HYALINE CASTS 1 /uL (0-3.1); PH,URINE 6.5 (5.0-8.0); URINE APPEARANCE CLEAR; URINE BACTERIA 0 /uL (0-1359); URINE BILIRUBIN NEGATIVE (NEGATIVE); URINE COLOR YELLOW; URINE GLUCOSE (UA) NEGATIVE (NEGATIVE); URINE KETONE NEGATIVE (NEGATIVE); URINE LEUK ESTERASE NEGATIVE (NEGATIVE); URINE NITRITE NEGATIVE (NEGATIVE); URINE PROTEIN NEGATIVE (NEGATIVE); URINE RBC 24 /uL (0-23.9); URINE UROBILINOGEN 0.2 mg/dL (0.2-1.0); URINE WBC 4 /uL (0-25.8)
[2021-01-21 04:33] VITALS: BP 110/70; PULSE 63; TEMP 98.5
== END 2021-01-21 04:38 | disposition home or self-care (01) ==
LOC: JER 22:24
DX: I10 Essential (primary) hypertension (principal)
CPT/HCPCS: 36415; 70450-TC; 71046-TC-FY; 80053; 81003; 82550; 84484; 85025; 93005; 93010; 99285-25

== ENCOUNTER 2021-03-07 07:41 | Emergency (ER) | payer OTHER ==
[2021-03-07 07:53] VITALS: BP 144/78; PULSE 69; TEMP 98.2; BMI 24.0
[2021-03-07] MEDS ORDERED: KETOROLAC TROMETHAMINE 30 MG/1 ML VIAL IM ONE (08:36)
[2021-03-07] MEDS ORDERED: LIDOCAINE 5% TOPICAL PATCH TP ONE (08:37)
[2021-03-07] MEDS ORDERED: diazePAM 2 MG TABLET PO ONE (08:37)
[2021-03-07] MEDS ORDERED: LIDOCAINE 5% TOPICAL PATCH ONE (09:28)
[2021-03-07] MEDS ORDERED: KETOROLAC TROMETHAMINE 30 MG/1 ML VIAL ONE (09:29)
[2021-03-07] MEDS ORDERED: diazePAM 2 MG TABLET ONE (09:29)
[2021-03-07] MEDS ORDERED: LIDOCAINE PATCH REMOVAL MC ONE (22:00)
== END 2021-03-07 11:09 | disposition home or self-care (01) ==
LOC: JERFT 07:41 → JER 07:41 → JERFT 11:09
PROC: 3E023GC Introduction of Other Therapeutic Substance into Muscle, Percutaneous Approach (ICD-10-PCS; principal; 2021-03-07)
DX: M54.41 Lumbago with sciatica, right side (principal)
CPT/HCPCS: 99284-25

== ENCOUNTER 2022-01-24 10:34 | Observation (INO) | payer OTHER ==
[2022-01-24 12:16] VITALS: BMI 22.4
[2022-01-24] MEDS ORDERED: ACETAMINOPHEN 325 MG TABLET (FP) PO ONE (14:46)
[2022-01-24] MEDS ORDERED: IBUPROFEN 400 MG TABLET (FP) PO ONE (14:47)
[2022-01-24 15:43] LABS: BASO % 0.6 % (0-2.0); EOS % 4.3 % (0-4.5); HEMATOCRIT 37.7 % (32.4-45.2); HEMOGLOBIN 13.1 GM/dL (10.7-15.3); LYMPH % 31.2 % (8-40); MCH 28.5 pg (25.7-33.7); MCHC 34.8 g/dl (32.0-36.0); MEAN CELL VOLUME 81.8 fl (80-96); MEAN PLT VOLUME 6.7 fl (7.5-11.1); NEUT % 55.9 % (42.8-82.8); PLATELET COUNT 298 10^3/uL (134-434); RBC 4.61 M/mm3 (3.60-5.2); RDW 14.2 % (11.6-15.6)
[2022-01-24 15:49] LABS: INR 1.34 (0.83-1.09); PROTHROMBIN TIME (PATIENT) 15.5 SEC (9.7-13.0)
[2022-01-24 15:51] LABS: ACTIVATED PTT 29.1 SECONDS (25.2-36.5)
[2022-01-24 16:08] LABS: CALCIUM 8.9 mg/dL (8.5-10.1)
[2022-01-24 16:09] LABS: BLOOD UREA NITROGEN 10.7 mg/dL (7-18)
[2022-01-24 16:12] LABS: CREATININE 0.6 mg/dL (0.55-1.3)
[2022-01-24 16:14] LABS: BILIRUBIN,TOTAL 0.4 mg/dL (0.2-1); TOT PROT 7.8 g/dl (6.4-8.2)
[2022-01-24] MEDS ORDERED: ASPIRIN 325 MG TABLET PO ONE (17:16)
[2022-01-24] MEDS ORDERED: ASPIRIN 325 MG TABLET ONE (17:20)
[2022-01-24] MEDS ORDERED: ATORVASTATIN CA 20 MG TABLET (FP) PO SCH (22:00)
[2022-01-25] MEDS ORDERED: LEVOTHYROXINE NA 25 MCG TABLET (FP) PO SCH (07:00)
[2022-01-25 07:16] LABS: BASO % 0.9 % (0-2.0); HEMATOCRIT 36.5 % (32.4-45.2); HEMOGLOBIN 12.4 GM/dL (10.7-15.3); LYMPH % 28.1 % (8-40); MCH 28.1 pg (25.7-33.7); MEAN CELL VOLUME 82.8 fl (80-96); MONO % 9.7 % (3.8-10.2); NEUT % 55.3 % (42.8-82.8); PLATELET COUNT 254 10^3/uL (134-434); RDW 14.1 % (11.6-15.6); WHITE BLOOD COUNT 5.8 K/mm3 (4.0-10.0)
[2022-01-25 07:48] LABS: ALBUMIN 3.4 g/dl (3.4-5.0); BLOOD UREA NITROGEN 10.8 mg/dL (7-18); CALCIUM 8.6 mg/dL (8.5-10.1)
[2022-01-25 07:52] LABS: CREATININE 0.6 mg/dL (0.55-1.3)
[2022-01-25 07:53] LABS: BILIRUBIN,TOTAL 0.5 mg/dL (0.2-1); TOT PROT 6.3 g/dl (6.4-8.2)
[2022-01-25 09:40] VITALS: RESP 20
[2022-01-25] MEDS ORDERED: LORATADINE 10 MG TABLET PO SCH (10:00)
[2022-01-25] MEDS ORDERED: ASPIRIN 81 MG CHEWABLE TABLETS PO SCH (10:00)
[2022-01-25] MEDS ORDERED: FAMOTIDINE 20 MG TABLET PO SCH (10:00)
[2022-01-25] MEDS ORDERED: LOSARTAN 50MG/HCTZ 12.5MG 1 TAB PO SCH (10:00)
[2022-01-25 12:57] VITALS: TEMP 98
[2022-01-25] MEDS ORDERED: ASPIRIN 81 MG CHEWABLE TABLETS ONE (13:38)
[2022-01-25 15:42] VITALS: BP 114/71; PULSE 81
== END 2022-01-25 15:58 | disposition home or self-care (01) ==
LOC: JER 10:34 → JERBED 18:00
PROVIDERS: ADMIT Internal Medicine; ATTEND Family Medicine
DX: R07.89 Other chest pain (principal); I10 Essential (primary) hypertension; E78.5 Hyperlipidemia, unspecified; K21.9 Gastro-esophageal reflux disease without esophagitis; E03.9 Hypothyroidism, unspecified; Z20.822 Contact with and (suspected) exposure to COVID-19
CPT/HCPCS: 36415; 71046-TC-FY; 78452-TC; 80053; 80061; 84484; 85025; 85610; 85730; 93005; 93010; 93017; 93306-TC; 99285-25; A9502; C9803-CS; G0378; U0003; U0005

== ENCOUNTER 2023-01-01 10:34 | Emergency (ER) | payer OTHER ==
[2023-01-01 10:56] VITALS: RESP 18; TEMP 99.9; BMI 24.3
[2023-01-01] MEDS ORDERED: METOCLOPRAMIDE HCL INJECTION 10 MG/2 ML VIAL IVPUSH ONE (12:36)
[2023-01-01] MEDS ORDERED: SODIUM CHLORIDE 0.9% 1000 ML INFUS.BAG IV ONE (12:36)
[2023-01-01] MEDS ORDERED: MECLIZINE HCL 25 MG TABLET (FP) PO ONE (12:36)
[2023-01-01 12:47] LABS: HEMATOCRIT 39.6 % (32.4-45.2); LYMPH % 25.1 % (8-40); MCHC 32.9 g/dl (32.0-36.0); MEAN CELL VOLUME 82.1 fl (80-96); MEAN PLT VOLUME 7.5 fl (7.5-11.1); MONO % 9.4 % (3.8-10.2); NEUT % 58.5 % (42.8-82.8); PLATELET COUNT 288 10^3/uL (134-434); RBC 4.83 M/mm3 (3.60-5.2); WHITE BLOOD COUNT 8.7 K/mm3 (4.0-10.0)
[2023-01-01] MEDS ORDERED: MECLIZINE HCL 25 MG TABLET (FP) ONE (12:47)
[2023-01-01] MEDS ORDERED: METOCLOPRAMIDE HCL INJECTION 10 MG/2 ML VIAL ONE (12:47)
[2023-01-01 13:10] LABS: POTASSIUM 3.8 mmol/L (3.5-5.1)
[2023-01-01 13:13] LABS: ALBUMIN 3.8 g/dl (3.4-5.0)
[2023-01-01 13:14] LABS: BLOOD UREA NITROGEN 13.9 mg/dL (7-18); CALCIUM 8.4 mg/dL (8.5-10.1)
[2023-01-01 13:17] LABS: BILIRUBIN,TOTAL 0.4 mg/dL (0.2-1)
[2023-01-01 13:18] LABS: CREATININE 0.8 mg/dL (0.55-1.3)
[2023-01-01 13:19] LABS: TOT PROT 7.2 g/dl (6.4-8.2)
[2023-01-01 13:38] LABS: EPI CELLS 12 /uL (0-25.1); HYALINE CASTS 0 /uL (0-3.1); URINE APPEARANCE CLEAR; URINE BACTERIA 19 /uL (0-1359); URINE BILIRUBIN NEGATIVE (NEGATIVE); URINE COLOR DK YELLOW; URINE GLUCOSE (UA) NEGATIVE (NEGATIVE); URINE KETONE TRACE (NEGATIVE); URINE LEUK ESTERASE TRACE (NEGATIVE); URINE NITRITE NEGATIVE (NEGATIVE); URINE PROTEIN TRACE (NEGATIVE); URINE RBC 21 /uL (0-23.9); URINE WBC 15 /uL (0-25.8)
[2023-01-01] MEDS ORDERED: LORazepam 1 MG TABLET PO ONE (15:37)
[2023-01-01] MEDS ORDERED: LORazepam 1 MG TABLET ONE (17:27)
[2023-01-01 21:24] VITALS: BP 139/79; PULSE 76
== END 2023-01-01 21:54 | disposition home or self-care (01) ==
LOC: JER 10:34
PROC: 3E033GC Introduction of Other Therapeutic Substance into Peripheral Vein, Percutaneous Approach (ICD-10-PCS; principal; 2023-01-01)
DX: M79.602 Pain in left arm (principal); R42 Dizziness and giddiness; R53.1 Weakness; D32.0 Benign neoplasm of cerebral meninges; R68.83 Chills (without fever); Z20.822 Contact with and (suspected) exposure to COVID-19
CPT/HCPCS: 0241U-QW; 36415; 70551-TC; 71046-TC-FY; 80053; 81003; 84484; 85025; 87086; 93005; 93010; 99285-25

== ENCOUNTER 2023-05-27 12:18 | Emergency (ER) | payer OTHER ==
[2023-05-27 12:35] VITALS: BP 132/77; PULSE 86; RESP 18; TEMP 99; BMI 23.1
[2023-05-27] MEDS ORDERED: methylPREDNISolone NA SUCC 125 MG/2 ML VIAL ONE (13:24)
[2023-05-27] MEDS ORDERED: ACETAMINOPHEN INJECTION 100 ML IVPB ONE (13:24)
[2023-05-27] MEDS ORDERED: ALBUTEROL SO4 2.5/IPRATROPIUM 0.5 INH SOL 3 ML VIAL.NEB. NEB ONE (13:24)
[2023-05-27] MEDS: methylPREDNISolone NA SUCC 125 MG/2 ML VIAL IVPUSH ONE (13:33)
[2023-05-27] MEDS: LACTATED RINGERS SOLUTION 1000 ML INFUS.BAG IV ONE (13:33)
[2023-05-27] MEDS: ACETAMINOPHEN 1000 MG/100 ML BAG IVPB ONE (13:33)
[2023-05-27] MEDS: ALBUTEROL SO4 2.5/IPRATROPIUM 0.5 INH SOL 3 ML VIAL.NEB. NEB SCH (13:33)
[2023-05-27 13:36] LABS: VENOUS O2 SATURATION 39.7 % (70-80); VENOUS PCO2 42.9 mmHg (38-52); VENOUS PH 7.414 (7.310-7.410)
[2023-05-27 13:38] LABS: BASO % 0.5 % (0-2.0); EOS % 1.3 % (0-4.5); HEMATOCRIT 35.3 % (32.4-45.2); LYMPH % 15.8 % (8-40); MCH 26.7 pg (25.7-33.7); MCHC 33.9 g/dl (32.0-36.0); MEAN CELL VOLUME 78.7 fl (80-96); MEAN PLT VOLUME 7.7 fl (7.5-11.1); MONO % 12.7 % (3.8-10.2); NEUT % 69.7 % (42.8-82.8); PLATELET COUNT 302 10^3/uL (134-434); RBC 4.49 M/mm3 (3.60-5.2); RDW 13.8 % (11.6-15.6); WHITE BLOOD COUNT 9.3 K/mm3 (4.0-10.0)
[2023-05-27 14:05] LABS: POTASSIUM 4.5 mmol/L (3.5-5.1)
[2023-05-27 14:07] LABS: BLOOD UREA NITROGEN 12.9 mg/dL (7-18); CALCIUM 8.6 mg/dL (8.5-10.1)
[2023-05-27 14:08] LABS: ALBUMIN 3.4 g/dl (3.4-5.0); MAGNESIUM 2.1 mg/dL (1.8-2.4)
[2023-05-27 14:12] LABS: TOT PROT 7.3 g/dl (6.4-8.2)
[2023-05-27 14:13] LABS: BILIRUBIN,TOTAL 0.4 mg/dL (0.2-1)
== END 2023-05-27 15:39 | disposition home or self-care (01) ==
LOC: JER 12:18
PROC: 3E033NZ Introduction of Analgesics, Hypnotics, Sedatives into Peripheral Vein, Percutaneous Approach (ICD-10-PCS; principal; 2023-05-27)
PROC: 3E033GC Introduction of Other Therapeutic Substance into Peripheral Vein, Percutaneous Approach (ICD-10-PCS; 2023-05-27)
PROC: 3E0F7GC Introduction of Other Therapeutic Substance into Respiratory Tract, Via Natural or Artificial Opening (ICD-10-PCS; 2023-05-27)
DX: R06.02 Shortness of breath (principal); R05.9 Cough, unspecified; J45.901 Unspecified asthma with (acute) exacerbation; Z20.822 Contact with and (suspected) exposure to COVID-19
CPT/HCPCS: 0241U-QW; 36415; 71045-TC-FY; 80053; 82803; 83735; 85025; 93005; 93010; 99285-25; J0131

== ENCOUNTER 2023-05-30 20:49 | Emergency (ER) | payer OTHER ==
[2023-05-30 21:05] VITALS: BP 140/79; PULSE 82; RESP 19; TEMP 98.5; BMI 22.4
== END 2023-05-31 00:55 | disposition home or self-care (01) ==
LOC: JER 20:49
DX: R05.9 Cough, unspecified (principal); R06.02 Shortness of breath; J45.909 Unspecified asthma, uncomplicated
CPT/HCPCS: 87651; 99283-25

== ENCOUNTER 2023-06-01 10:51 | Inpatient (IN) | payer OTHER ==
[2023-06-01 10:57] VITALS: BMI 20.7
[2023-06-01] MEDS ORDERED: ONDANSETRON 4 MG/2 ML VIAL ONE (11:59)
[2023-06-01] MEDS ORDERED: FAMOTIDINE 20 MG/50 ML IVPB 20 MG/50 ML MG IVPB ONE (11:59)
[2023-06-01] MEDS ORDERED: MAG HYDROX/AL HYDROX/SIMETH 30 ML UNIT-DOSE CUP ONE (11:59)
[2023-06-01] MEDS ORDERED: ACETAMINOPHEN INJECTION 100 ML IVPB ONE (11:59)
[2023-06-01 12:02] LABS: HEMOGLOBIN 11.7 GM/dL (10.7-15.3); MCH 26.3 pg (25.7-33.7); MCHC 33.4 g/dl (32.0-36.0); MEAN CELL VOLUME 78.7 fl (80-96); MEAN PLT VOLUME 7.2 fl (7.5-11.1); PLATELET COUNT 412 10^3/uL (134-434); RBC 4.45 M/mm3 (3.60-5.2); RDW 13.7 % (11.6-15.6)
[2023-06-01] MEDS: SODIUM CHLORIDE 0.9% 500 ML INFUS.BAG IV ONE (12:09)
[2023-06-01] MEDS: MAG HYDROX/AL HYDROX/SIMETH 30 ML UNIT-DOSE CUP PO ONE (12:09)
[2023-06-01] MEDS: ACETAMINOPHEN 1000 MG/100 ML BAG IVPB ONE (12:10)
[2023-06-01] MEDS: FAMOTIDINE 20 MG/50 ML IVPB 20 MG/50 ML MG IVPB ONE (12:10)
[2023-06-01] MEDS: ONDANSETRON 4 MG/2 ML VIAL IVPUSH ONE (12:10)
[2023-06-01 12:14] LABS: POTASSIUM 4.5 mmol/L (3.5-5.1)
[2023-06-01 12:19] LABS: BLOOD UREA NITROGEN 21.2 mg/dL (7-18); CALCIUM 8.5 mg/dL (8.5-10.1); MAGNESIUM 2.2 mg/dL (1.8-2.4)
[2023-06-01 12:22] LABS: CREATININE 1.2 mg/dL (0.55-1.3)
[2023-06-01 12:24] LABS: BILIRUBIN,TOTAL 0.4 mg/dL (0.2-1); TOT PROT 6.8 g/dl (6.4-8.2)
[2023-06-01 12:39] LABS: PH,URINE 7.5 (5.0-8.0); URINE APPEARANCE CLEAR; URINE BILIRUBIN NEGATIVE (NEGATIVE); URINE COLOR YELLOW; URINE GLUCOSE (UA) NEGATIVE (NEGATIVE); URINE KETONE NEGATIVE (NEGATIVE); URINE LEUK ESTERASE NEGATIVE (NEGATIVE); URINE NITRITE NEGATIVE (NEGATIVE); URINE PROTEIN NEGATIVE (NEGATIVE); URINE UROBILINOGEN 0.2 mg/dL (0.2-1.0)
[2023-06-01 14:24] LABS: ANISOCYTOSIS 0; HELMET CELLS 0; HOWELL-JOLLY BODIES 0; MACROCYTOSIS 0; OVALOCYTE 0; ROULEAU 0; SICKELED CELLS 0; TARGET CELLS 0; TEAR DROP CELLS 0; TOXIC GRANULATION 0
[2023-06-01] MEDS ORDERED: ACETAMINOPHEN 325 MG TABLET (FP) PO PRN (15:45)
[2023-06-01] MEDS ORDERED: MECLIZINE HCL 12.5 MG TABLET PO PRN (15:45)
[2023-06-01] MEDS ORDERED: ALBUTEROL SO4 0.083% IH SOL 2.5 MG/3 ML VIAL.NEB. NEB PRN (15:45)
[2023-06-01] MEDS ORDERED: ATORVASTATIN CA 20 MG TABLET (FP) ONE (21:18)
[2023-06-01] MEDS ORDERED: PANTOPRAZOLE 40 MG TABLET PO ONE (21:18)
[2023-06-01] MEDS ORDERED: HEPARIN NA (PORCINE) 5,000 UNITS/ML 1ML VIAL ONE (21:18)
[2023-06-01] MEDS ORDERED: levETIRAcetam 500 MG TABLET (FP) PO ONE (21:18)
[2023-06-01] MEDS: HEPARIN NA (PORCINE) 5,000 UNITS/ML 1ML VIAL SQ SCH (21:57)
[2023-06-01] MEDS: levETIRAcetam 500 MG TABLET (FP) PO SCH (21:57)
[2023-06-01] MEDS: PANTOPRAZOLE 40 MG TABLET PO SCH (21:57)
[2023-06-01] MEDS: ATORVASTATIN CA 20 MG TABLET (FP) PO SCH (21:57)
[2023-06-02 09:44] VITALS: BP 122/63; PULSE 75; RESP 18; TEMP 98.1
[2023-06-02] MEDS: LEVOTHYROXINE NA 25 MCG TABLET (FP) PO SCH (10:36)
[2023-06-02] MEDS: LOSARTAN 50MG/HCTZ 12.5MG 1 TAB PO SCH (10:37)
[2023-06-02] MEDS: ASPIRIN COATED 81 MG TABLET.EC PO SCH (10:37)
[2023-06-02] MEDS: metoPROLOL SUCCINATE 25 MG TAB.SR.24H (FP) PO SCH (10:38)
== END 2023-06-02 14:55 | disposition home or self-care (01) | DRG 149 ==
LOC: JER 10:51 → JERBED 15:39 → OBSVTOIN 15:45
PROVIDERS: ADMIT Family Medicine; ATTEND Family Medicine
DX: R42 Dizziness and giddiness (principal); J32.9 Chronic sinusitis, unspecified; E03.9 Hypothyroidism, unspecified; J45.909 Unspecified asthma, uncomplicated; I10 Essential (primary) hypertension; R05.9 Cough, unspecified; E78.5 Hyperlipidemia, unspecified
CPT/HCPCS: 0241U-QW; 36415; 70491-TC; 71045-TC-FY; 80053; 81003; 82962; 83540; 83735; 84439; 84443; 84484; 85025; 85651; 86140; 87086; 93005; 93010; 99285-25; G0378; J0131; J1644; Q9967

== ENCOUNTER 2023-09-02 12:03 | Emergency (ER) | payer OTHER ==
[2023-09-02 12:30] VITALS: BP 110/66; PULSE 65; RESP 18; TEMP 99.1; BMI 22.6
[2023-09-02] MEDS ORDERED: ACETAMINOPHEN 325 MG TABLET (FP) ONE (13:30)
[2023-09-02] MEDS: ACETAMINOPHEN 325 MG TABLET (FP) PO ONE (13:32)
== END 2023-09-02 15:02 | disposition home or self-care (01) ==
LOC: JERFT 12:03
DX: S20.212A Contusion of left front wall of thorax, initial encounter (principal); W22.8XXA Striking against or struck by other objects, initial encounter; Y99.0 Civilian activity done for income or pay
CPT/HCPCS: 71046-TC-FY; 71101-TC-LT-FY; 99284-25

== ENCOUNTER 2024-05-14 07:46 | Inpatient (IN) | payer OTHER ==
[2024-05-14] MEDS ORDERED: ACETAMINOPHEN INJECTION 100 ML ONE (09:07)
[2024-05-14] MEDS: ACETAMINOPHEN 1000 MG/100 ML BAG IVPB ONE (09:11)
[2024-05-14 09:17] LABS: HEMATOCRIT 36.4 % (32.4-45.2); HEMOGLOBIN 12.4 GM/dL (10.7-15.3); MEAN CELL VOLUME 76.5 fl (80-96); RBC 4.76 M/mm3 (3.60-5.2); WHITE BLOOD COUNT 7.7 K/mm3 (4.0-10.0)
[2024-05-14 09:18] LABS: BASO % 0.6 % (0-2.0); EOS % 1.3 % (0-4.5); LYMPH % 16.2 % (8-40); MCHC 33.9 g/dl (32.0-36.0); MEAN PLT VOLUME 7.3 fl (7.5-11.1); NEUT % 73.9 % (42.8-82.8); PLATELET COUNT 243 10^3/uL (134-434); RDW 16.9 % (11.6-15.6)
[2024-05-14 09:31] LABS: INR 1.27 (0.83-1.09); PROTHROMBIN TIME (PATIENT) 13.8 SEC (9.7-13.0)
[2024-05-14 09:33] LABS: ACTIVATED PTT 29.1 SECONDS (25.2-36.5)
[2024-05-14 09:35] LABS: POTASSIUM 3.9 mmol/L (3.5-5.1)
[2024-05-14 09:38] LABS: ALBUMIN 3.6 g/dl (3.4-5.0); BLOOD UREA NITROGEN 11.5 mg/dL (7-18); CALCIUM 8.8 mg/dL (8.5-10.1)
[2024-05-14 09:41] LABS: CREATININE 0.6 mg/dL (0.55-1.3)
[2024-05-14 09:43] LABS: BILIRUBIN,TOTAL 0.5 mg/dL (0.2-1)
[2024-05-14] MEDS ORDERED: GABAPENTIN 100 MG CAPSULE ONE (15:40)
[2024-05-14] MEDS: GABAPENTIN 100 MG CAPSULE PO SCH (15:45)
[2024-05-14] MEDS ORDERED: LACOSAMIDE 50 MG TABLET PO SCH (22:00)
[2024-05-14] MEDS: ACETAMINOPHEN 1000 MG/100 ML BAG IVPB PRN (22:40)
[2024-05-14] MEDS: MUPIROCIN 2% TOPICAL OINTMENT FOR DECOLONIZATION NS SCH (22:42)
[2024-05-14] MEDS: CHLORHEXIDINE GLUCONATE 4% CLEANSER FOR DECOLONIZATION TP SCH (22:42)
[2024-05-14] MEDS: LACOSAMIDE 100 MG TABLET PO SCH (22:42)
[2024-05-14] MEDS: MONTELUKAST NA 10 MG TABLET PO SCH (22:42)
[2024-05-14] MEDS: MECLIZINE HCL 12.5 MG TABLET PO PRN (22:43)
[2024-05-15 07:57] LABS: BASO % 0.7 % (0-2.0); EOS % 2.1 % (0-4.5); HEMATOCRIT 34.1 % (32.4-45.2); HEMOGLOBIN 11.5 GM/dL (10.7-15.3); LYMPH % 24.2 % (8-40); MCHC 33.7 g/dl (32.0-36.0); MEAN PLT VOLUME 7.8 fl (7.5-11.1); PLATELET COUNT 234 10^3/uL (134-434); RBC 4.43 M/mm3 (3.60-5.2); RDW 17.2 % (11.6-15.6); WHITE BLOOD COUNT 6.4 K/mm3 (4.0-10.0)
[2024-05-15 08:35] LABS: POTASSIUM 4.1 mmol/L (3.5-5.1)
[2024-05-15 08:37] LABS: MAGNESIUM 2.1 mg/dL (1.8-2.4)
[2024-05-15 08:38] LABS: ALBUMIN 3.1 g/dl (3.4-5.0); BLOOD UREA NITROGEN 12.9 mg/dL (7-18); CALCIUM 8.5 mg/dL (8.5-10.1)
[2024-05-15 08:41] LABS: CREATININE 0.7 mg/dL (0.55-1.3); PHOSPHOROUS 4.6 mg/dL (2.5-4.9)
[2024-05-15 08:42] LABS: TOT PROT 6.2 g/dl (6.4-8.2)
[2024-05-15 08:44] LABS: BILIRUBIN,TOTAL 0.5 mg/dL (0.2-1)
[2024-05-15] MEDS: PANTOPRAZOLE 40 MG TABLET PO SCH (10:26)
[2024-05-15] MEDS: amLODIPine BESYLATE 5 MG TABLET (FP) PO SCH (10:26)
[2024-05-15] MEDS: LACOSAMIDE 50 MG TABLET PO SCH (10:26)
[2024-05-15] MEDS: LIDOCAINE 4% PATCH TP SCH (10:28)
[2024-05-15] MEDS: LEVOTHYROXINE NA 25 MCG TABLET (FP) PO SCH (12:45)
[2024-05-15 13:15] VITALS: BMI 22.0
[2024-05-15] MEDS: LIDOCAINE PATCH REMOVAL MC SCH (22:47)
[2024-05-16 07:33] LABS: BASO % 0.6 % (0-2.0); EOS % 2.5 % (0-4.5); HEMATOCRIT 35.3 % (32.4-45.2); HEMOGLOBIN 11.8 GM/dL (10.7-15.3); LYMPH % 22.4 % (8-40); MCH 26.1 pg (25.7-33.7); MCHC 33.5 g/dl (32.0-36.0); MEAN PLT VOLUME 7.5 fl (7.5-11.1); MONO % 10.2 % (3.8-10.2); NEUT % 64.3 % (42.8-82.8); PLATELET COUNT 243 10^3/uL (134-434); RBC 4.52 M/mm3 (3.60-5.2); RDW 16.7 % (11.6-15.6); WHITE BLOOD COUNT 6.8 K/mm3 (4.0-10.0)
[2024-05-16 08:13] LABS: POTASSIUM 3.6 mmol/L (3.5-5.1)
[2024-05-16 08:19] LABS: ALBUMIN 2.9 g/dl (3.4-5.0); CALCIUM 8.2 mg/dL (8.5-10.1)
[2024-05-16 08:20] LABS: BLOOD UREA NITROGEN 18.4 mg/dL (7-18); MAGNESIUM 2.2 mg/dL (1.8-2.4)
[2024-05-16 08:22] LABS: CREATININE 0.7 mg/dL (0.55-1.3); PHOSPHOROUS 4.4 mg/dL (2.5-4.9)
[2024-05-16 08:24] LABS: BILIRUBIN,TOTAL 0.4 mg/dL (0.2-1); TOT PROT 6.1 g/dl (6.4-8.2)
[2024-05-16] MEDS: GABAPENTIN 100 MG CAPSULE PO SCH (14:37)
[2024-05-16] MEDS: MECLIZINE HCL 12.5 MG TABLET PO PRN (14:38)
[2024-05-16] MEDS: ACETAMINOPHEN 1000 MG/100 ML BAG IVPB PRN (19:57)
[2024-05-16] MEDS: LACOSAMIDE 50 MG TABLET PO SCH (21:40)
[2024-05-16] MEDS: MONTELUKAST NA 10 MG TABLET PO SCH (21:40)
[2024-05-16] MEDS: LIDOCAINE PATCH REMOVAL MC SCH (21:41)
[2024-05-16] MEDS ORDERED: CHLORHEXIDINE GLUCONATE 4% CLEANSER FOR DECOLONIZATION TP SCH (22:00)
[2024-05-16] MEDS ORDERED: MUPIROCIN 2% TOPICAL OINTMENT FOR DECOLONIZATION NS SCH (22:00)
[2024-05-17] MEDS: LIDOCAINE 4% PATCH TP SCH (09:52)
[2024-05-17] MEDS: amLODIPine BESYLATE 5 MG TABLET (FP) PO SCH (09:52)
[2024-05-17] MEDS: PANTOPRAZOLE 40 MG TABLET PO SCH (09:52)
[2024-05-17] MEDS: LEVOTHYROXINE NA 25 MCG TABLET (FP) PO SCH (09:52)
[2024-05-17 09:55] LABS: POTASSIUM 3.5 mmol/L (3.5-5.1)
[2024-05-17 09:56] LABS: BASO % 0.7 % (0-2.0); EOS % 2.7 % (0-4.5); HEMATOCRIT 33.6 % (32.4-45.2); HEMOGLOBIN 11.3 GM/dL (10.7-15.3); LYMPH % 22.8 % (8-40); MCH 25.9 pg (25.7-33.7); MCHC 33.7 g/dl (32.0-36.0); MEAN PLT VOLUME 7.8 fl (7.5-11.1); MONO % 9.1 % (3.8-10.2); NEUT % 64.7 % (42.8-82.8); PLATELET COUNT 234 10^3/uL (134-434); RBC 4.37 M/mm3 (3.60-5.2); RDW 17.2 % (11.6-15.6); WHITE BLOOD COUNT 6.8 K/mm3 (4.0-10.0)
[2024-05-17 10:12] LABS: ALBUMIN 2.9 g/dl (3.4-5.0); BLOOD UREA NITROGEN 18.3 mg/dL (7-18); CALCIUM 8.2 mg/dL (8.5-10.1)
[2024-05-17 10:16] LABS: CREATININE 0.6 mg/dL (0.55-1.3)
[2024-05-17 10:18] LABS: BILIRUBIN,TOTAL 0.3 mg/dL (0.2-1)
[2024-05-17] MEDS: SERTRALINE HCL 25 MG TABLET (FP) PO SCH (13:04)
[2024-05-17] MEDS: FOLIC ACID INJECTION - 1 MG, THIAMINE HCL 100 MG, MULTIVIT INJECTION ADULT 10 ML in SOD... IVPB ONE (13:51)
[2024-05-17] MEDS: LACOSAMIDE 100 MG TABLET PO SCH (21:35)
[2024-05-19] MEDS: MECLIZINE HCL 25 MG TABLET (FP) PO SCH (06:28)
[2024-05-19] MEDS: LACOSAMIDE 50 MG TABLET PO SCH (09:51)
[2024-05-20] MEDS: LACOSAMIDE 200 MG TABLET PO SCH (21:52)
[2024-05-21 02:16] VITALS: RESP 18
[2024-05-21 14:31] VITALS: BP 120/68; PULSE 70; TEMP 99
== END 2024-05-21 18:39 | disposition home or self-care (01) | DRG 57 ==
LOC: JER 07:46 → JERBED 14:02 → JICU 18:33 → J8W 05-16 11:58
PROVIDERS: ADMIT Internal Medicine Pulmonary Disease; ATTEND Family Medicine
DX: S06.0XAA Concussion with loss of consciousness status unknown, initial encounter (principal); I10 Essential (primary) hypertension; D33.7 Benign neoplasm of other specified parts of central nervous system; E03.9 Hypothyroidism, unspecified; E78.5 Hyperlipidemia, unspecified; G40.909 Epilepsy, unspecified, not intractable, without status epilepticus; J45.909 Unspecified asthma, uncomplicated; K29.70 Gastritis, unspecified, without bleeding; R42 Dizziness and giddiness; R79.89 Other specified abnormal findings of blood chemistry; S40.012A Contusion of left shoulder, initial encounter; V87.7XXA Person injured in collision between other specified motor vehicles (traffic), initial encounter; Y93.89 Activity, other specified; Y92.89 Other specified places as the place of occurrence of the external cause; Y99.9 Unspecified external cause status
CPT/HCPCS: 0241U-QW; 36415; 70450-TC; 70486-TC; 70553-TC; 71045-TC-FY; 72125-TC; 72128-TC; 72131-TC; 72192-TC; 73030-TC-LT-FY; 73060-TC-LT-FY; 73200-TC-RT; 76705-TC; 80053; 82550; 82962; 82977; 83735; 84100; 85025; 85610; 85730; 86708; 86850; 86900; 86901; 87340; 87902; 93005; 93010; 93306-TC; 93880-TC; 97116-GP; 97162-GP; 99291; J0131

== ENCOUNTER 2024-12-01 21:40 | Observation (INO) | payer OTHER ==
[2024-12-01 22:24] LABS: ABSOLUTE IMMATURE GRANULOCYTES 0.02 x10^3/uL (0.0-0.031); BASOPHILS # 0.08 x10^3/uL (0.01-0.08); EOSINOPHIL % 3.7 % (0.7-5.8); EOSINOPHILS # 0.30 x10^3/uL (0.04-0.36); MCHC 32.7 g/dl (32.2-35.5); MEAN CELL VOLUME 82.6 fl (79.4-94.8); MEAN PLT VOLUME 9.7 fl (9.4-12.3); MONOCYTE # 0.81 x10^3/uL (0.24-0.86); MONOCYTE % 10.0 % (4.7-12.5); RDW 14.1 % (12.4-16.4)
[2024-12-01 22:33] LABS: INR 1.33 (0.83-1.09); PROTHROMBIN TIME (PATIENT) 14.5 SEC (9.7-13.0)
[2024-12-01 22:36] LABS: ACTIVATED PTT 28.9 SECONDS (25.2-36.5)
[2024-12-01 22:56] LABS: GLUCOSE,RANDOM 98.0 mg/dL (74-106)
[2024-12-01 22:57] LABS: TOT PROT 7.5 g/dl (6.4-8.2)
[2024-12-01 22:58] LABS: CO2 27.0 mmol/L (21-32)
[2024-12-01 22:59] LABS: ALK PHOS 152.0 U/L (40-150)
[2024-12-01 23:02] LABS: CREATININE 0.84 mg/dL (0.55-1.3); SGOT/AST 26.0 U/L (5-34); SGPT/ALT 26.0 U/L (0-55)
[2024-12-01 23:24] LABS: HCV DIAGNOSTIC IN-HOUSE W/RFLX NON-REACTIVE (NONREACTIVE); HIV INTERPRETATION NEGATIVE (NEGATIVE)
[2024-12-01] MEDS ORDERED: MECLIZINE HCL 25 MG TABLET (FP) ONE (23:28)
[2024-12-01] MEDS: MECLIZINE HCL 25 MG TABLET (FP) PO ONE (23:31)
[2024-12-02 00:28] LABS: EPI CELLS 1 /uL (0-25.1); HYALINE CASTS 0 /uL (0-3.1); URINE APPEARANCE CLEAR; URINE BACTERIA 0 /uL (0-1359); URINE BILIRUBIN NEGATIVE (NEGATIVE); URINE COLOR YELLOW; URINE GLUCOSE (UA) NEGATIVE (NEGATIVE); URINE KETONE NEGATIVE (NEGATIVE); URINE LEUK ESTERASE NEGATIVE (NEGATIVE); URINE NITRITE NEGATIVE (NEGATIVE); URINE PROTEIN NEGATIVE (NEGATIVE); URINE RBC 53 /uL (0-23.9); URINE UROBILINOGEN 0.2 mg/dL (0.2-1.0); URINE WBC 3 /uL (0-25.8)
[2024-12-02] MEDS: SODIUM CHLORIDE 1,000 ML IV SCH (01:37)
[2024-12-02 02:44] VITALS: BMI 22.5
[2024-12-02] MEDS ORDERED: MECLIZINE HCL 12.5 MG TABLET PO PRN (07:47)
[2024-12-02] MEDS ORDERED: DESONIDE TP PRN (07:47)
[2024-12-02 08:15] LABS: ABSOLUTE IMMATURE GRANULOCYTES 0.02 x10^3/uL (0.0-0.031); BASOPHILS # 0.08 x10^3/uL (0.01-0.08); EOSINOPHIL % 5.3 % (0.7-5.8); EOSINOPHILS # 0.31 x10^3/uL (0.04-0.36); MCHC 32.1 g/dl (32.2-35.5); MEAN CELL VOLUME 83.1 fl (79.4-94.8); MEAN PLT VOLUME 9.5 fl (9.4-12.3); MONOCYTE # 0.63 x10^3/uL (0.24-0.86); MONOCYTE % 10.7 % (4.7-12.5); RDW 13.9 % (12.4-16.4)
[2024-12-02 08:36] LABS: GLUCOSE,RANDOM 78.0 mg/dL (74-106)
[2024-12-02 08:38] LABS: CO2 28.0 mmol/L (21-32)
[2024-12-02 08:42] LABS: CREATININE 0.57 mg/dL (0.55-1.3)
[2024-12-02] MEDS: LACOSAMIDE 50 MG TABLET PO SCH (09:23)
[2024-12-02] MEDS: PANTOPRAZOLE 40 MG TABLET PO SCH (09:23)
[2024-12-02] MEDS: amLODIPine BESYLATE 5 MG TABLET (FP) PO SCH (09:23)
[2024-12-02] MEDS: LEVOTHYROXINE NA 25 MCG TABLET (FP) PO SCH (09:23)
[2024-12-02] MEDS: BUDESONIDE/FORMETEROL FUMARATE 160/4.5 mcg INHALER IH SCH (09:31)
[2024-12-02] MEDS: ATORVASTATIN CA 20 MG TABLET (FP) PO SCH (21:17)
[2024-12-02] MEDS ORDERED: SODIUM CHLORIDE 1,000 ML IV STA (21:37)
[2024-12-02] MEDS: SODIUM CHLORIDE 500 ML IV STA (22:05)
[2024-12-03] MEDS: AMOX TR/POT CLAV 875MG/125MG TABLETS (FP) PO SCH (18:00)
[2024-12-04 10:39] VITALS: TEMP 97.7
[2024-12-04 15:08] VITALS: BP 116/70; PULSE 71; RESP 18
== END 2024-12-04 15:43 | disposition home or self-care (01) ==
LOC: JER 21:40 → JERBED 22:09 → J6W TELE 12-02 02:15
PROVIDERS: ADMIT Family Medicine; ATTEND Family Medicine
DX: D32.0 Benign neoplasm of cerebral meninges (principal); I10 Essential (primary) hypertension; E78.5 Hyperlipidemia, unspecified; I34.0 Nonrheumatic mitral (valve) insufficiency; E03.9 Hypothyroidism, unspecified; K21.9 Gastro-esophageal reflux disease without esophagitis; Z86.69 Personal history of other diseases of the nervous system and sense organs; Z79.899 Other long term (current) drug therapy
CPT/HCPCS: 36415; 70450-TC; 70552-TC; 71045-TC-FY; 80048; 80053; 81003; 82607; 83735; 84100; 84443; 84484; 85025; 85610; 85730; 86618; 86780; 86803; 86850; 86900; 86901; 87086; 87389; 93005; 93010; 97116-GP; 97161-GP; 99285-25; G0378